=== PATIENT | female | born 1940 | race Caucasian/White ===

== ENCOUNTER 2016-10-03 10:58 | Emergency (ER) | payer MEDICARE ==
[~2016-10-03 10:58] MED LIST: Sodium Chloride 0.9% 100 ML BAG ONE
[2016-10-03 11:49] LABS: #Basophils 0.1 thou/uL (0.0-0.2); #Eosinphils 0.1 thou/uL (0.0-0.7); #Lymphocytes 0.9 thou/uL (1.20-3.40); #Monocytes 0.6 thou/uL (0.11-0.59); %Basophils 1.1 % (0.0-1.0); %Eosinophils 1.3 % (0.0-10.0); %Lymphocytes 8.8 % (21.0-51.0); %Neutrophils 82.8 % (42.0-75.0); INR-International Normal Ratio 0.9; Mean Corpuscular HGB CONC 35.1 g/dL (32.0-36.0); Mean Corpuscular Hemoglobin 31.1 pg (27.0-31.0); Mean Corpuscular Volume 88.6 fl (81.0-99.0); Mean Platelet Volume 7.6 fL (7.4-10.4); Platelet Count 266 thou/uL (130-400); Prothrombin Time 12.5 SEC (12.0-14.7); RBC Distribution Width 12.5 % (11.5-14.5); White Blood Cell (WBC) Count 9.6 thou/uL (4.8-10.8)
[2016-10-03] MEDS ORDERED: cefTRIAXone\\ROCEPHIN 1 GM VIAL ONE (11:49)
[2016-10-03] MEDS ORDERED: Benzonatate 100 MG CAP ONE (11:49)
[2016-10-03] MEDS ORDERED: Ketorolac Tromethamine 30 MG/ML VIAL ONE (11:49)
[2016-10-03] MEDS ORDERED: Dexamethasone 10 MG/ML VIAL ONE (11:49)
[2016-10-03] MEDS ORDERED: methylPREDNISolone Sod Succ/PF 125 MG/2 ML VIAL ONE (11:49)
[2016-10-03] MEDS ORDERED: Ondansetron HCl/PF 4 MG/2 ML Vial ONE (11:49)
--- NOTE | 2016-10-03 11:52 | RAD ---
PORTABLE CHEST ONE VIEW 10/03/2016 at 11:31 a.m.: HISTORY: Dyspnea. FINDINGS: Comparison is made with exam of 08/20/2015. The aorta is tortuous. The lungs are expanded with stable chronic changes. No confluent areas of c onsolidation, pneumothoraces, or pleural effusions are identified. IMPRESSION: Stable exam. No acute process. POS: [facility]
[2016-10-03 11:56] LABS: ALT (SGPT) 10 U/L (0-55); AST (SGOT) 14 U/L (5-34); Albumin 4.5 g/dL (3.4-4.8); Alkaline Phosphatase 86 U/L (40-150); Anion Gap 15 mmol/L (10-20); BUN (Urea Nitrogen) 11 mg/dL (9.8-20.1); Bilirubin, Total 0.5 mg/dL (0.2-1.2); Calc. Creatinine Clearance 0 mL/min (70-130); Calcium 9.5 mg/dL (7.8-10.44); Carbon Dioxide 27 mmol/L (23-31); Chloride 105 mmol/L (98-107); Estimated GFR-MDRD 80; Glucose 96 mg/dL (83-110); Potassium 3.7 mmol/L (3.5-5.1); Protein, Total 7.5 g/dL (5.8-8.1); Sodium 143 mmol/L (136-145)
[2016-10-03 12:29] LABS: Bilirubin Negative (Negative); Blood, Urine Trace (Negative); Clarity Slightly Cloudy (Clear); Glucose, Urine (Dipstick) Negative (Negative); Leukocyte Negative (Negative); Nitrite Negative (Negative); Protein, Urine (Dipstick) Negative (Neg-Trace); Urobilinogen 0.2 mg/dL (0.2-1.0); pH, Urine 7.5 (5.0-9.0)
[2016-10-03 12:34] LABS: Bacteria/HPF Rare-Few HPF (None Seen); Crystals/HPF 1+ AMORPH PHOS HPF (Negative); RBC/HPF 0-3 HPF (0-3); Squamous Epithelial 0-3 HPF (0-3); WBC/HPF None Seen HPF (0-3)
== END 2016-10-03 14:23 | disposition home or self-care (01) ==
LOC: MADERS 10:58
DX: J20.9 Acute bronchitis, unspecified (principal); J44.9 Chronic obstructive pulmonary disease, unspecified; Z87.891 Personal history of nicotine dependence
CPT/HCPCS: 71010; 80053; 81003; 81015; 83880; 85025; 85610; 85730; 87086; 87430; 93005; 94640; 94760; 96365; 96375; J0696; J1100; J1885; J2405; J2930; J7050; J7620

== ENCOUNTER 2017-04-16 05:18 | Inpatient (IN) | payer MEDICARE ==
[2017-04-16] MEDS ORDERED: Ibuprofen 200 MG TAB ONE (05:41)
[2017-04-16 06:08] LABS: #Basophils 0.1 thou/uL (0.0-0.2); #Lymphocytes 0.4 thou/uL (1.20-3.40); #Monocytes 0.6 thou/uL (0.11-0.59); #Neutrophils 8.9 thou/uL (1.40-6.50); %Basophils 1.2 % (0.0-1.0); %Lymphocytes 3.8 % (21.0-51.0); %Neutrophils 88.9 % (42.0-75.0); Hemoglobin 13.1 g/dL (12.0-16.0); Mean Corpuscular HGB CONC 32.4 g/dL (32.0-36.0); Mean Corpuscular Hemoglobin 29.4 pg (27.0-31.0); Mean Corpuscular Volume 90.9 fl (81.0-99.0); Mean Platelet Volume 7.5 fL (7.4-10.4); Platelet Count 241 thou/uL (130-400); RBC Distribution Width 13.2 % (11.5-14.5); Red Blood Cell (RBC) Count 4.45 mill/uL (4.20-5.40)
[2017-04-16 06:27] LABS: ALT (SGPT) 15 U/L (8-55); AST (SGOT) 16 U/L (5-34); Albumin 4.3 g/dL (3.4-4.8); Alkaline Phosphatase 81 U/L (40-150); Anion Gap 16 mmol/L (10-20); BUN (Urea Nitrogen) 10 mg/dL (9.8-20.1); Bilirubin, Total 0.5 mg/dL (0.2-1.2); Calc. Creatinine Clearance 0 mL/min (70-130); Calcium 9.4 mg/dL (7.8-10.44); Carbon Dioxide 25 mmol/L (23-31); Chloride 104 mmol/L (98-107); Estimated GFR-MDRD 72; Globulin 3.3 g/dL (2.4-3.5); Glucose 150 mg/dL (83-110); Potassium 3.5 mmol/L (3.5-5.1); Protein, Total 7.6 g/dL (6.0-8.3); Sodium 141 mmol/L (136-145)
[2017-04-16 06:34] LABS: CKMB 0.6 ng/mL (0-6.6); Troponin I Less than 0.010 ng/mL (< 0.028)
[2017-04-16 06:56] LABS: Bilirubin Negative (Negative); Clarity Clear (Clear); Glucose, Urine (Dipstick) Negative (Negative); Leukocyte Negative (Negative); Nitrite Negative (Negative); Protein, Urine (Dipstick) Negative (Neg-Trace); Specific Gravity, Urine 1.015 (1.005-1.030); Urobilinogen 0.2 mg/dL (0.2-1.0)
[2017-04-16 06:57] LABS: Bacteria/HPF None Seen HPF (None Seen); Blood, Urine Small (Negative); Squamous Epithelial 0-3 HPF (0-3); WBC/HPF 0-3 HPF (0-3)
[2017-04-16] MEDS ORDERED: Dexamethasone 10 MG/ML VIAL ONE (07:10)
[2017-04-16] MEDS ORDERED: cefTRIAXone\\ROCEPHIN 1 GM VIAL ONE (07:11)
[2017-04-16] MEDS ORDERED: methylPREDNISolone Sod Succ/PF 125 MG/2 ML VIAL ONE (07:11)
[2017-04-16] MEDS ORDERED: Sodium Chloride 0.9% 1,000 ML BAG ONE (08:20)
[2017-04-16] MEDS ORDERED: Sodium Chloride 0.9% 100 ML BAG ONE (08:20)
--- NOTE | 2017-04-16 08:45 | RAD ---
TWO VIEW CHEST: HISTORY: Fever. COMPARISON: 10/03/16 portable exam. FINDINGS: Lungs remain clear. No infiltrate or edema seen. Heart size within normal range. Mild aortic calc ification. Degenerative changes of both shoulders. Some chronic parenchymal changes in both lungs appear stable. IMPRESSION: No acute interval change. POS: [facility]
[2017-04-16] MEDS ORDERED: Enoxaparin Sodium 30 MG/0.3 ML SYRINGE ONE (09:10)
[2017-04-16] MEDS ORDERED: Azithromycin 250 MG TAB ONE (09:10)
[2017-04-16] MEDS ORDERED: Ondansetron HCl/PF 4 MG/2 ML Vial SLOW IVP PRN (10:15)
[2017-04-16] MEDS ORDERED: Loperamide HCl 2 MG CAP PO PRN (10:15)
[2017-04-16] MEDS ORDERED: Guaifenesin DM 100-10/5 ML UDCUP PO PRN (10:15)
[2017-04-16] MEDS ORDERED: HYDROcodone/Acetaminophen 5/325 mg Tablet PO PRN ×2 (10:15)
[2017-04-16] MEDS ORDERED: Zolpidem Tartrate 5 MG TAB PO PRN (10:15)
[2017-04-16] MEDS ORDERED: Bisacodyl 5 MG TAB PO PRN (10:15)
[2017-04-16] MEDS: Sodium Chloride 0.9% 1,000 ML IV SCH ×2 (11:05→20:46)
[2017-04-16] MEDS ORDERED: cefTRIAXone\\ROCEPHIN 1 GM in Sodium Chloride 0.9% 100 ML IVPB SCH (20:00)
--- NOTE | 2017-04-16 22:31 | HP ---
ADMITTING PHYSICIAN: Madina Barragan M.D. PRIMARY CARE PHYSICIAN: Rosita Bhatti M.D. REASON FOR ADMISSION: Shortness of breath. HISTORY OF PRESENT ILLNESS: Ms. Doyle is a 76-year-old female with significant history of COPD and chronic hypoxia, oxygen dependent. The patient reports she has been coughing at home. This is associated with shortness of breath and wheezing over the past 48-72 hours. Today, she develops fever at 102.6 upon initial evaluation in the ER. Denies any history of recent travel or ill exposure. Patient reports progressive wheezing and shortness of breath, thus she went to the ER for further evaluation. Patient reports no significant chest pain, pain with bleeding or bloody sputum. Patient was reported to have significant wheezing and tachycardia on presentation at the ER per report. Her initial vital signs in the ER showed blood pressure of 160/77, pulse 122, respirations 19, temperature 102.6, O2 saturation is 92% at 2 liters per nasal cannula. On further observation, the patient's O2 sats went up to 98-99 at 2 liters oxygen continuous per nasal cannula. Initial labs showed no significant leukocytosis with stable electrolytes. EKG showed sinus tachycardia, biatrial enlargement, otherwise, no acute evidence of ischemia. Cardiac enzymes are within normal limits. Chest x-ray showed no infiltrates or edema seen. Lungs remain clear. Heart size within normal range with some chronic parenchymal changes in both lungs, appears stable with no acute interval change. The patient was admitted for COPD exacerbation. Treatment received from the ER includes Decadron 10 mg, Solu -Medrol 125 mg IV, and DuoNeb breathing treatments. Empiric IV antibiotic with Rocephin was started from the ER and she was also started on Zithromax orally. Patient's heart rate went down to 109 prior to admission. Her O2 sats remain at 99 at 2 liters per nasal cannula before transfer to Med/Surg. When seen in the floor, patient was resting comfortably in bed. Family was at bedside, consisting of his son,daughter, sister and daughter in law. She reports she is feeling a little better, breathing much better. No new issues reported. PAST MEDICAL HISTORY: 1. COPD 2. Chronic hypoxia, O2 dependent. 3. Osteoarthritis. 4. History of hypertension, currently not on antihypertensives. 5. History of shingles on her face, bridge of nose, 2010. PAST SURGICAL HISTORY: 1. History of lithotripsy for kidney stones. 2. Hysterectomy in 1972 SOCIAL HISTORY: The patient was a former tobacco user, smoked cigarettes 1 pack a day for 50 years, quit 15 years ago. The patient denies alcohol use. Denies drug use. Lives at home with family. FAMILY HISTORY: Noncontributory to this case. CURRENT MEDICATIONS: 1. DuoNeb inhaled q.6 hours scheduled. 2. Advair 250/50 one puff b.i.d. REVIEW OF SYSTEMS: General: Reports fever, chills, general weakness, fatigue. HEENT: No acute visual changes or hearing changes. Respiratory: As per HPI. Cardiac: No chest pain/chest tightness, dyspnea on exertion, paroxysmal nocturnal dyspnea and palpitations. Genitourinary: No dysuria, hematuria, frequency, urgency or gross hematuria. Gastrointestinal: No nausea, vomiting, abdominal pain, diarrhea or constipation. No rectal bleeding. Musculoskeletal : Reports intermittent joint pains. No significant joint effusions or redness. Skin: No rashes, no lesions, no jaundice. Neurologic: No focal paralysis. No paraesthesia. VITAL SIGNS: BP 135/63 WA: 108 Temperature 97.5 RR: 18 02 sats: 97% Weight 114.4lbs PHYSICAL EXAMINATION: GENERAL: patient is awake,alert, oriented x 3, not in acute distress. HEENT: normo cephalic, atraumatic. NAVEEN, intact EOM, nonicteric sclerae. NECK: supple, no LAD, no JVD, no bruit. CHEST: mild tachypneic, nonlabored breathing. CARDIAC: mildly tachycardic, normal S1 and S2, no murmurs. ABDOMEN: soft ,NABS, nontender, no rebound, no guarding. Negative CVA tenderness. EXTREMITIES: thin, with clubbing, no cyanosis, no edema. NEURO: nonfocal, DTR's 2 ++, gait-normal. SKIN: dry, warm, no rashes, no lesions. LABORATORY AND X-RAY FINDINGS: WBC 10, hemoglobin 13.1, hematocrit 40.4, platelets 241,000. Sodium 141, potassium 3.5, carbon dioxide 25, BUN 10, creatinine 0.78, estimated GFR 72, glucose 150, lactic acid 1.5, calcium 9.4. Liver function tests within normal limits. CK 0.6, troponin less than 0.010. Albumin 4.3. Urine, yellow with small blood, urine rbc 7-10, urine wbc 0-3. Urine bacteria none seen. ASSESSMENT: 1. Chronic obstructive pulmonary disease on acute exacerbation. 2. Acute and chronic hypoxia, O2 dependent. 3. Microscopic hematuria with history of urolithiasis, status post stent, asymptomatic. 4. History of insomnia. PLAN: The patient is admitted to Med/Surg for inpatient COPD management. We will continue bronchodilator, IV steroids, and empiric antibiotic therapy as above. Serial blood works and chest x-rays. Patient reports history of urolithiasis, but she is currently asymptomatic. Her admitting urinalysis showed mild microscopic hematuria. We will repeat UA in the morning. If persistent, we will consider further stone protocol. We will continue IV hydration until patient is fully stabilized. Gastrointestinal prophylaxis with PPI. DVT prophylaxis with Lovenox. Further recommendations depending on the hospital course. CODE STATUS: Patient reports DO NOT RESUSCITATE, DO NOT INTUBATE in the presence of her son, Sergo Doyle. Mr. Doyle concurs the patient's wishes. DISPOSITION: Home once appropriate. Estimated length of stay 2-3 days. MTDD
[2017-04-17 05:56] LABS: Anion Gap 12 mmol/L (10-20)
[2017-04-17 06:10] LABS: Hemoglobin 12.1 g/dL (12.0-16.0); Mean Corpuscular HGB CONC 33.1 g/dL (32.0-36.0); Mean Corpuscular Hemoglobin 29.6 pg (27.0-31.0); Mean Corpuscular Volume 89.6 fl (81.0-99.0); Mean Platelet Volume 7.6 fL (7.4-10.4); Platelet Count 224 thou/uL (130-400); RBC Distribution Width 12.9 % (11.5-14.5); White Blood Cell (WBC) Count 9.4 thou/uL (4.8-10.8)
[2017-04-17 06:11] LABS: ALT (SGPT) 15 U/L (8-55); AST (SGOT) 14 U/L (5-34); Albumin 3.9 g/dL (3.4-4.8); Alkaline Phosphatase 68 U/L (40-150); BUN (Urea Nitrogen) 7 mg/dL (9.8-20.1); Bilirubin, Total Less than 0.3 mg/dL (0.2-1.2); Calc. Creatinine Clearance 59 mL/min (70-130); Calcium 9.1 mg/dL (7.8-10.44); Carbon Dioxide 24 mmol/L (23-31); Chloride 111 mmol/L (98-107); Estimated GFR-MDRD 88; Glucose 173 mg/dL (83-110); Potassium 3.1 mmol/L (3.5-5.1); Protein, Total 6.9 g/dL (6.0-8.3); Sodium 144 mmol/L (136-145)
[2017-04-17] MEDS: cefTRIAXone\\ROCEPHIN 1 GM in Sodium Chloride 0.9% 100 ML IVPB SCH (06:17)
[2017-04-17 06:18] LABS: Anisocytosis MODERATE=16-30 cells (100X) (0-5/hpf); Band 2 % (5-11); Hypochromia MODERATE=16-30 cells (100X) (0-5/hpf); Lymphocytes 5 % (21-51); MDiff Complete? YES; Monocytes 3 % (0-10); Neutrophil 90 % (42-75); PLT Morphology Comment Appears Adequate; Poikilocytosis MODERATE=16-30 cells (100X) (0-5/hpf)
[2017-04-17] MEDS: Sodium Chloride 0.9% 1,000 ML IV SCH ×2 (06:18→06:20)
[2017-04-17] MEDS: Enoxaparin Sodium 30 MG/0.3 ML SYRINGE SC SCH (06:20)
[2017-04-17 07:22] LABS: Anion Gap 15 mmol/L (10-20); BUN (Urea Nitrogen) 7 mg/dL (9.8-20.1); Calc. Creatinine Clearance 58 mL/min (70-130); Calcium 9.2 mg/dL (7.8-10.44); Carbon Dioxide 22 mmol/L (23-31); Chloride 111 mmol/L (98-107); Estimated GFR-MDRD 87; Glucose 161 mg/dL (83-110); Sodium 145 mmol/L (136-145)
[2017-04-17 07:24] LABS: Bacteria/HPF None Seen HPF (None Seen); RBC/HPF 0-3 HPF (0-3); Squamous Epithelial 0-3 HPF (0-3); WBC/HPF 0-3 HPF (0-3)
[2017-04-17] MEDS: Azithromycin 250 MG TAB PO SCH (08:52)
[2017-04-17] MEDS ORDERED: Pantoprazole 40 MG VIAL IVP SCH (09:00)
--- NOTE | 2017-04-17 09:59 | RAD ---
TWO VIEW CHEST: HISTORY: COPD. COMPARISON: 04/16/17. FINDINGS: Lungs show mild hyperexpansion. No focal infiltrate. No vascular congestion. Heart size within no rmal range. Aortic calcification is again noted. IMPRESSION: No acute finding or interval change. POS: [facility]
[2017-04-17] MEDS ORDERED: Potassium Chloride 20 MEQ TAB PO SCH (15:00)
[2017-04-17] MEDS ORDERED: methylPREDNISolone 4 mg Tablet PO SCH (15:00)
[2017-04-17] MEDS: 1/2 NS w/KCL 20 mEq 1,000 ML IV SCH (15:38)
[2017-04-17] MEDS: methylPREDNISolone 4 mg Tablet PO SCH ×3 (15:39→21:04)
[2017-04-17] MEDS: Budesonide 0.5 MG/2 ML NEB INH SCH (19:39)
[2017-04-17] MEDS: Benzonatate 100 MG CAP PO SCH (21:04)
[2017-04-18] MEDS: Budesonide 0.5 MG/2 ML NEB INH SCH ×2 (06:03→17:44)
[2017-04-18] MEDS: cefTRIAXone\\ROCEPHIN 1 GM in Sodium Chloride 0.9% 100 ML IVPB SCH (06:05)
[2017-04-18] MEDS: Enoxaparin Sodium 30 MG/0.3 ML SYRINGE SC SCH (06:10)
[2017-04-18] MEDS: Benzonatate 100 MG CAP PO SCH ×3 (08:37→21:07)
[2017-04-18] MEDS: Azithromycin 250 MG TAB PO SCH (08:37)
[2017-04-18] MEDS: Potassium Chloride 20 MEQ TAB PO SCH (08:37)
[2017-04-18] MEDS: methylPREDNISolone 4 mg Tablet PO SCH ×3 (08:37→17:41)
[2017-04-18 10:38] VITALS: BMI 19.2
[2017-04-18 10:49] LABS: Anion Gap 16 mmol/L (10-20); BUN (Urea Nitrogen) 12 mg/dL (9.8-20.1); Calc. Creatinine Clearance 54 mL/min (70-130); Calcium 9.6 mg/dL (7.8-10.44); Carbon Dioxide 23 mmol/L (23-31); Chloride 109 mmol/L (98-107); Estimated GFR-MDRD 79; Glucose 163 mg/dL (83-110); Potassium 3.5 mmol/L (3.5-5.1); Sodium 144 mmol/L (136-145)
[2017-04-18 11:06] LABS: Hemoglobin A1c 5.4 % (4.0-6.0)
[2017-04-18] MEDS: 1/2 NS w/KCL 20 mEq 1,000 ML IV SCH (11:48)
[2017-04-18] MEDS ORDERED: Sodium Chloride 0.9% 1,000 ML BAG ONE (13:44)
[2017-04-18] MEDS ORDERED: clonazePAM 0.5 MG TAB PO PRN (16:37)
[2017-04-18] MEDS ORDERED: methylPREDNISolone 4 mg Tablet PO SCH (21:00)
[2017-04-19] MEDS: Budesonide 0.5 MG/2 ML NEB INH SCH ×2 (06:19→17:59)
[2017-04-19] MEDS: cefTRIAXone\\ROCEPHIN 1 GM in Sodium Chloride 0.9% 100 ML IVPB SCH (06:22)
[2017-04-19] MEDS: Enoxaparin Sodium 30 MG/0.3 ML SYRINGE SC SCH (06:29)
[2017-04-19] MEDS: 1/2 NS w/KCL 20 mEq 1,000 ML IV SCH (07:15)
[2017-04-19] MEDS: methylPREDNISolone 4 mg Tablet PO SCH ×4 (08:28→20:28)
[2017-04-19] MEDS: Benzonatate 100 MG CAP PO SCH ×3 (08:28→20:29)
[2017-04-19] MEDS: Potassium Chloride 20 MEQ TAB PO SCH (08:28)
[2017-04-19] MEDS: Azithromycin 250 MG TAB PO SCH (08:28)
[2017-04-20] MEDS: Enoxaparin Sodium 30 MG/0.3 ML SYRINGE SC SCH (06:09)
[2017-04-20] MEDS: cefTRIAXone\\ROCEPHIN 1 GM in Sodium Chloride 0.9% 100 ML IVPB SCH (06:09)
[2017-04-20] MEDS: Budesonide 0.5 MG/2 ML NEB INH SCH (06:10)
[2017-04-20] MEDS: Potassium Chloride 20 MEQ TAB PO SCH (07:41)
[2017-04-20] MEDS: methylPREDNISolone 4 mg Tablet PO SCH ×2 (07:41→11:03)
[2017-04-20] MEDS: Azithromycin 250 MG TAB PO SCH (08:56)
[2017-04-20] MEDS: Benzonatate 100 MG CAP PO SCH (08:56)
[2017-04-20] MEDS ORDERED: 1/2 NS ONE (10:18)
[2017-04-20] MEDS ORDERED: Sterile Water Irrigation 250 ML BOT ONE (10:18)
[2017-04-20] MEDS ORDERED: Sodium Chloride 0.9% 1,000 ML BAG ONE (10:18)
[2017-04-20] MEDS ORDERED: KCL ONE (10:18)
[2017-04-20 12:15] VITALS: BP 143/64; TEMP 98.4
--- NOTE | 2017-04-21 06:32 | DIS ---
DATE OF ADMISSION: 04/16/2017 DATE OF DISCHARGE: 04/20/2017 DISCHARGE MEDICATIONS: Tessalon Perles 100 t.i.d. x10 days, Medrol pack, Klonopin 0.5 mg b.i.d. p.r.n. anxiety, sertraline 25 mg daily, Advair 250/50 one puff b.i.d., DuoNeb q.6 hourly p.r.n. DISCHARGE INSTRUCTIONS: Follow up with primary care physician in 2 weeks. Fall precautions, oxygen use at all times. BRIEF HOSPITAL COURSE: Ms. Doyle is a 76-year-old female, who is a patient of mine who presented to the emergency room on the 04/16/2017 due to coughing at home and worsening shortness of breath. The patient does have a history of severe COPD and she is oxygen dependent. She complained of fevers. She had a temperature of 102.6 in the emergency room. She complained of weakness and O2 sat was in the low 90s on 2 liters. Chest x-ray showed no infiltrates or edema, but patient was in visible respiratory distress, so she was admitted for COPD exacerbation. The patient was treated with IV Rocephin and completed 5 day course of IV antibiotics and oral azithromycin. During hospitalization, the patient had episodes of hypokalemia. Potassium was replaced without any complications. The patient was also noted to have hyperglycemic episodes. She was giving insulin, but A1c was done which was 5.4 and the patient was noted to not be diabetic. She initially started on Solu- Medrol 125 IV and that was later tapered to oral steroids based on improvement. During hospitalization, the patient complained of depression with anxiety states she has been taking her granddaughter's sertraline, and medication was added for her. She was started on sertraline 25, and Klonopin 0.5 b.i.d. as needed for anxiety. Patient was afebrile throughout hospitalization and her mental status was baseline. She improved significantly and was discharged home with the home oxygen in a stable condition. The patient was told to follow up closely with her primary care physician Vital signs upon discharge, temperature 98.4, pulse 100, respirations 20, O2 of 96% on 2 liters nasal cannula, blood pressure 143/64. Total time spent in preparation of this discharge summary and evaluation of patient, was a total of 35 minutes. [facility]
[2017-04-21] MEDS ORDERED: methylPREDNISolone 4 mg Tablet PO SCH (08:00)
[2017-04-22] MEDS ORDERED: methylPREDNISolone 4 mg Tablet PO SCH (08:00)
== END 2017-04-20 13:48 | disposition home or self-care (01) | DRG 192 ==
LOC: MADERS 05:18 → MADMS 08:44
PROVIDERS: ADMIT Family Medicine; ATTEND Family Medicine
DX: J44.1 Chronic obstructive pulmonary disease with (acute) exacerbation (principal); Z99.81 Dependence on supplemental oxygen; R31.21 Asymptomatic microscopic hematuria; E87.6 Hypokalemia; R73.9 Hyperglycemia, unspecified; F41.9 Anxiety disorder, unspecified; R09.02 Hypoxemia; M19.90 Unspecified osteoarthritis, unspecified site; Z87.891 Personal history of nicotine dependence; Z66 Do not resuscitate; F32.9 Major depressive disorder, single episode, unspecified
CPT/HCPCS: 36415; 71020; 80048; 80053; 81003; 81015; 82553; 83036; 83605; 84484; 85007; 85025; 85027; 87040; 87149; 93005; 94640; 96361; 96365; 96372; 96375; A4216; J0696; J1100; J1650; J2920; J2930; J7050; J7620; J7626

== ENCOUNTER 2017-10-20 08:28 | Emergency (ER) | payer MEDICARE ==
[2017-10-20] MEDS ORDERED: Ketorolac Tromethamine 30 MG/ML VIAL ONE (09:04)
--- NOTE | 2017-10-20 09:39 | RAD ---
LEFT HIP TWO VIEWS: HISTORY: Trauma. COMPARISON: None. FINDINGS: There is a nondisplaced intertrochanteric fracture of the left femur. The obturator ring is intact. IMPRESSION: Nondisplaced intertrochanteric fracture, left femur. POS: [facility]
--- NOTE | 2017-10-20 09:40 | RAD ---
AP PELVIS RADIOGRAPH: 10/20/2017 HISTORY: The patient fell today. Unable to straighten left leg. FINDINGS: There is a nondisplaced intertrochanteric left hip fracture. No distal fracture is seen. There is m ild bilateral hip osteoarthritis. Degenerative changes are seen in the lower lumbar spine. IMPRESSION: Nondisplaced intertrochanteric left hip fracture. POS: [facility]
[2017-10-20 10:40] LABS: #Basophils 0.1 thou/uL (0.0-0.2); #Eosinphils 0.1 thou/uL (0.0-0.7); #Lymphocytes 0.9 thou/uL (1.20-3.40); #Monocytes 0.6 thou/uL (0.11-0.59); %Eosinophils 0.5 % (0.0-10.0); %Lymphocytes 7.3 % (21.0-51.0); %Monocytes 4.9 % (0.0-10.0); %Neutrophils 86.3 % (42.0-75.0); Hemoglobin 12.6 g/dL (12.0-16.0); Mean Corpuscular HGB CONC 32.3 g/dL (32.0-36.0); Mean Corpuscular Hemoglobin 29.5 pg (27.0-31.0); Mean Corpuscular Volume 91.2 fl (81.0-99.0); Mean Platelet Volume 7.3 fL (7.4-10.4); Platelet Count 260 thou/uL (130-400); RBC Distribution Width 12.7 % (11.5-14.5); Red Blood Cell (RBC) Count 4.27 mill/uL (4.20-5.40); White Blood Cell (WBC) Count 12.8 thou/uL (4.8-10.8)
[2017-10-20] MEDS ORDERED: Fentanyl 100 MCG/2 ML VIAL ONE (10:51)
[2017-10-20 10:52] LABS: ALT (SGPT) 15 U/L (8-55); AST (SGOT) 14 U/L (5-34); Albumin 4.3 g/dL (3.4-4.8); Alkaline Phosphatase 85 U/L (40-150); Anion Gap 14 mmol/L (10-20); BUN (Urea Nitrogen) 11 mg/dL (9.8-20.1); Bilirubin, Total 0.4 mg/dL (0.2-1.2); Calc. Creatinine Clearance 0 mL/min (70-130); Calcium 9.2 mg/dL (7.8-10.44); Carbon Dioxide 25 mmol/L (23-31); Chloride 108 mmol/L (98-107); Estimated GFR-MDRD 77; Globulin 2.7 g/dL (2.4-3.5); Glucose 111 mg/dL (83-110); Potassium 4.2 mmol/L (3.5-5.1); Sodium 143 mmol/L (136-145)
[2017-10-20 10:54] LABS: Bilirubin Negative (Negative); Blood, Urine Negative (Negative); Clarity Clear (Clear); Glucose, Urine (Dipstick) Negative (Negative); Leukocyte Negative (Negative); Nitrite Negative (Negative); Protein, Urine (Dipstick) Negative (Neg-Trace); Specific Gravity, Urine 1.015 (1.005-1.030); Urobilinogen 0.2 mg/dL (0.2-1.0)
== END 2017-10-20 11:04 | disposition short-term general hospital (02) ==
LOC: MADERS 08:28
DX: S72.145A Nondisplaced intertrochanteric fracture of left femur, initial encounter for closed fracture (principal); S80.212A Abrasion, left knee, initial encounter; J44.9 Chronic obstructive pulmonary disease, unspecified; Z87.891 Personal history of nicotine dependence; Z79.899 Other long term (current) drug therapy; W10.9XXA Fall (on) (from) unspecified stairs and steps, initial encounter; Y92.009 Unspecified place in unspecified non-institutional (private) residence as the place of occurrence of the external cause
CPT/HCPCS: 72170; 80053; 81003; 85025; 96374; 96375; J1885; J3010

== ENCOUNTER 2017-10-23 21:09 | Inpatient (IN) | payer MEDICARE ==
[2017-10-23] MEDS ORDERED: Ondansetron ODT 4 MG TAB PO PRN (22:30)
[2017-10-23] MEDS ORDERED: Dextrose 50% Abboject 50 ML SYRINGE SLOW IVP PRN (22:35)
[2017-10-23] MEDS ORDERED: Fleet Enema 133 ML BOT PR PRN (22:35)
[2017-10-23] MEDS ORDERED: Milk Of Magnesia 30 ML UDCUP PO PRN (22:35)
[2017-10-23] MEDS ORDERED: traMADol HCl 50 MG TAB PO PRN ×3 (22:35→22:56)
[2017-10-24] MEDS: Senokot S 8.6-50 MG TAB PO SCH ×2 (08:27→20:22)
[2017-10-24] MEDS: Mometasone/Formoterol 60 PUFF AER INH SCH ×2 (08:27→19:26)
[2017-10-24] MEDS: Docusate 100 MG CAP PO SCH (08:28)
[2017-10-24] MEDS: Aspirin 325 MG TAB PO SCH ×2 (08:28→20:22)
[2017-10-24] MEDS: Multivitamin W/ Minerals 1 TAB PO SCH (08:28)
[2017-10-24] MEDS: Ferrous Gluconate 324 MG TAB PO SCH ×2 (08:28→17:07)
[2017-10-24] MEDS: Albuterol Sulfate 2.5 mg/3 ml Neb NEB PRN ×3 (08:35→21:45)
[2017-10-24] MEDS ORDERED: Docusate 100 MG CAP PO SCH (09:00)
[2017-10-24] MEDS ORDERED: Non-Formulary Item 1 EACH (Fluticasone/Salmeterol [Advair Diskus 250/50] 1 INH) IH SCH (09:00)
--- NOTE | 2017-10-24 15:14 | HP ---
DATE OF ADMISSION: 10/23/2017 ADMITTING AND PRIMARY CARE PHYSICIAN: Rosita Bhatti MD REASON FOR ADMISSION: Skilled rehabilitation at [facility] status post left intertrochanteric hip fracture status post intramedullary nail fixation on 10/20/2017. HISTORY OF PRESENT ILLNESS: Ms. Doyle is a 77-year-old female with a past medical history of COPD with oxygen dependent. She states she was in a normal state of health at home and she was ambulating on a doorway and slipped on a step, causing her to fall on her right hip. Patient immediately sustained pain on the left side of her hip and was transferred to the emergency room where she was noted with x-ray showed a nondisplaced intertrochanteric left hip fracture. The patient was transferred to [facility] in [place] and underwent intramedullary nail fixation on 10/20/2017. The patient tolerated the procedure well and on postop day #3, she was transferred for skilled rehabilitation at [facility] in [place]. When i saw patient today she denies any chest pain, cough or fevers. She complains she feels sick to her stomach, but denies any diarrhea or constipation. The patient has tolerated Tylenol for pain, but was given tramadol x1, which she links to the abdominal pain. She complains of mild tenderness to the left hip, but denies any falls. She is excited to start physical therapy in anticipation to go home in the next couple of weeks. PAST MEDICAL HISTORY: COPD, oxygen dependent, depression. PAST SURGICAL HISTORY: Hysterectomy in 1973, lithotripsy for kidney stones. SOCIAL HISTORY: Patient is a former tobacco smoker. She smoked 1 pack per day x50 years. She says she quit about 10-15 years ago. The patient denies any alcohol use. She denies any illicit drug use. She lives at home with her daughter. MEDICATIONS: Oxygen 2 liters via nasal cannula, albuterol nebulizer as needed, Advair inhaler b.i.d., sertraline 25 mg daily. ALLERGIES: No known drug allergies. CODE STATUS: FULL CODE. REVIEW OF SYSTEMS: Denies any fever, denies any fatigue. Complains of inability to walk straight. Denies chest pain, denies shortness of breath. Denies blurry vision, denies eye pain. Denies congestion, cough. Denies nausea or vomiting. Complains of mild abdominal discomfort. Denies any hallucinations or delusions. PHYSICAL EXAMINATION: VITAL SIGNS: Temperature 97.5, respirations 18, O2 sat on nasal cannula 2 liters 96%, blood pressure 132/64. GENERAL: Patient is alert, awake, oriented x3, very pleasant, sitting up in bed. HEENT: Normocephalic, atraumatic. RESPIRATIONS: Clear to auscultation bilaterally on 2 liters nasal cannula. CARDIOVASCULAR: S1, S2, no murmurs. No rubs. EXTREMITIES: No edema. Left hip with three different incisions with ekaterina intact, mildly tender. No surrounding erythema, no drainage. NEUROLOGIC: Alert, awake, oriented x3, no focal deficits. ASSESSMENT: 1. Physical debility. 2. Gait instability status post left hip fracture status post intramedullary nail fixation. 3. Chronic obstructive pulmonary disease, oxygen dependent. 4. Depression PLAN: The patient is to be admitted to [facility] bed. We will consult physical therapy to help with gait strengthening and we will consult occupational therapy to help with the teaching in activities of daily living. We will restart the patient's home medications. We will monitor the patient closely for any hemodynamic instability. We will place patient on sequential compression devices for deep venous thrombosis prophylaxis and Protonix for GI prophylaxis. EXPECTED LENGTH OF STAY: Two to three weeks. [facility]
[2017-10-24] MEDS: Acetaminophen 325 MG TAB PO PRN (17:27)
[2017-10-25] MEDS: Mometasone/Formoterol 60 PUFF AER INH SCH ×2 (07:23→18:37)
[2017-10-25] MEDS: Ferrous Gluconate 324 MG TAB PO SCH ×2 (08:01→16:58)
[2017-10-25] MEDS: Docusate 100 MG CAP PO SCH (09:19)
[2017-10-25] MEDS: Aspirin 325 MG TAB PO SCH ×2 (09:19→21:14)
[2017-10-25] MEDS: Multivitamin W/ Minerals 1 TAB PO SCH (09:19)
[2017-10-25] MEDS: Senokot S 8.6-50 MG TAB PO SCH ×2 (09:19→21:15)
[2017-10-25] MEDS: Albuterol Sulfate 2.5 mg/3 ml Neb NEB PRN (13:05)
[2017-10-25] MEDS: Albuterol Sulfate 2.5 mg/3 ml Neb NEB SCH (18:46)
[2017-10-25] MEDS: Zolpidem Tartrate 5 MG TAB PO PRN (18:59)
[2017-10-26] MEDS: Albuterol Sulfate 2.5 mg/3 ml Neb NEB PRN (02:17)
[2017-10-26] MEDS: Albuterol Sulfate 2.5 mg/3 ml Neb NEB SCH ×4 (08:50→19:20)
[2017-10-26] MEDS: Mometasone/Formoterol 60 PUFF AER INH SCH ×2 (08:50→19:21)
[2017-10-26] MEDS: Ferrous Gluconate 324 MG TAB PO SCH ×2 (08:51→17:11)
[2017-10-26] MEDS: Docusate 100 MG CAP PO SCH (08:51)
[2017-10-26] MEDS: Senokot S 8.6-50 MG TAB PO SCH ×2 (08:51→20:02)
[2017-10-26] MEDS: Multivitamin W/ Minerals 1 TAB PO SCH (08:51)
[2017-10-26] MEDS: Aspirin 325 MG TAB PO SCH ×2 (08:51→20:02)
[2017-10-26] MEDS ORDERED: acetaZOLAMIDE Sodium 500 mg Vial ONE (13:15)
[2017-10-26] MEDS: Zolpidem Tartrate 5 MG TAB PO PRN (20:01)
[2017-10-27] MEDS: Albuterol Sulfate 2.5 mg/3 ml Neb NEB PRN ×3 (02:20→23:35)
[2017-10-27] MEDS: Mometasone/Formoterol 60 PUFF AER INH SCH ×2 (06:05→17:52)
[2017-10-27] MEDS: Albuterol Sulfate 2.5 mg/3 ml Neb NEB SCH ×4 (06:05→17:53)
[2017-10-27] MEDS: Multivitamin W/ Minerals 1 TAB PO SCH (08:26)
[2017-10-27] MEDS: Aspirin 325 MG TAB PO SCH ×2 (08:26→20:01)
[2017-10-27] MEDS: Ferrous Gluconate 324 MG TAB PO SCH ×2 (08:26→17:17)
[2017-10-27] MEDS: Senokot S 8.6-50 MG TAB PO SCH ×2 (08:26→20:02)
[2017-10-27] MEDS: Docusate 100 MG CAP PO SCH (08:26)
[2017-10-27] MEDS: Acetaminophen 325 MG TAB PO PRN (20:01)
[2017-10-27] MEDS: Zolpidem Tartrate 5 MG TAB PO PRN (20:01)
[2017-10-28] MEDS: Albuterol Sulfate 2.5 mg/3 ml Neb NEB PRN ×2 (04:34→22:32)
[2017-10-28] MEDS: Albuterol Sulfate 2.5 mg/3 ml Neb NEB SCH ×4 (08:58→17:22)
[2017-10-28] MEDS: Mometasone/Formoterol 60 PUFF AER INH SCH ×2 (09:03→17:23)
[2017-10-28] MEDS: Ferrous Gluconate 324 MG TAB PO SCH ×2 (09:04→15:14)
[2017-10-28] MEDS: Multivitamin W/ Minerals 1 TAB PO SCH (09:05)
[2017-10-28] MEDS: Aspirin 325 MG TAB PO SCH ×2 (09:05→21:10)
[2017-10-28] MEDS: Senokot S 8.6-50 MG TAB PO SCH ×2 (09:05→21:12)
[2017-10-28] MEDS: Docusate 100 MG CAP PO SCH ×2 (09:05→09:07)
[2017-10-28] MEDS ORDERED: Azithromycin 250 MG TAB PO SCH (14:00)
[2017-10-28] MEDS: Cepastat Lozenges 1 LOZ PO PRN (21:10)
[2017-10-28] MEDS: Zolpidem Tartrate 5 MG TAB PO PRN (21:10)
[2017-10-29] MEDS: Albuterol Sulfate 2.5 mg/3 ml Neb NEB PRN (02:48)
[2017-10-29] MEDS: Cepastat Lozenges 1 LOZ PO PRN (03:33)
[2017-10-29] MEDS: Mometasone/Formoterol 60 PUFF AER INH SCH ×2 (06:32→18:05)
[2017-10-29] MEDS: Albuterol Sulfate 2.5 mg/3 ml Neb NEB SCH ×4 (06:32→18:05)
[2017-10-29] MEDS: Acetaminophen 325 MG TAB PO PRN ×2 (06:44→19:24)
[2017-10-29] MEDS: Multivitamin W/ Minerals 1 TAB PO SCH (09:23)
[2017-10-29] MEDS: Ferrous Gluconate 324 MG TAB PO SCH ×2 (09:23→16:46)
[2017-10-29] MEDS: Senokot S 8.6-50 MG TAB PO SCH ×2 (09:23→20:30)
[2017-10-29] MEDS: Aspirin 325 MG TAB PO SCH ×2 (09:23→20:30)
[2017-10-29] MEDS: Docusate 100 MG CAP PO SCH (09:24)
[2017-10-29] MEDS: Azithromycin 250 MG TAB PO SCH (09:24)
[2017-10-29] MEDS: Guaifenesin DM 100-10/5 ML UDCUP PO PRN (16:27)
[2017-10-29] MEDS: Zolpidem Tartrate 5 MG TAB PO PRN (20:30)
[2017-10-30] MEDS: Mometasone/Formoterol 60 PUFF AER INH SCH ×2 (06:56→18:00)
[2017-10-30] MEDS: Albuterol Sulfate 2.5 mg/3 ml Neb NEB SCH ×4 (06:57→18:00)
[2017-10-30] MEDS: Aspirin 325 MG TAB PO SCH ×2 (08:04→20:48)
[2017-10-30] MEDS: Ferrous Gluconate 324 MG TAB PO SCH ×2 (08:04→17:01)
[2017-10-30] MEDS: Azithromycin 250 MG TAB PO SCH (08:04)
[2017-10-30] MEDS: Senokot S 8.6-50 MG TAB PO SCH ×2 (08:05→20:48)
[2017-10-30] MEDS: Multivitamin W/ Minerals 1 TAB PO SCH (08:05)
[2017-10-30] MEDS: Docusate 100 MG CAP PO SCH (08:05)
[2017-10-30 11:34] LABS: Bilirubin Negative (Negative); Blood, Urine Trace (Negative); Clarity Clear (Clear); Glucose, Urine (Dipstick) Negative (Negative); Leukocyte Negative (Negative); Nitrite Negative (Negative); Protein, Urine (Dipstick) Negative (Neg-Trace); Specific Gravity, Urine 1.015 (1.005-1.030); Urobilinogen 0.2 mg/dL (0.2-1.0)
[2017-10-30 11:35] LABS: Bacteria/HPF Rare-Few HPF (None Seen); RBC/HPF 0-3 HPF (0-3); Squamous Epithelial 0-3 HPF (0-3); WBC/HPF None Seen HPF (0-3)
[2017-10-30 11:59] LABS: ALT (SGPT) 21 U/L (8-55); AST (SGOT) 21 U/L (5-34); Albumin 3.8 g/dL (3.4-4.8); Alkaline Phosphatase 74 U/L (40-150); BUN (Urea Nitrogen) 14 mg/dL (9.8-20.1); Bilirubin, Total 0.5 mg/dL (0.2-1.2); Calc. Creatinine Clearance 61 mL/min (70-130); Calcium 9.4 mg/dL (7.8-10.44); Carbon Dioxide 28 mmol/L (23-31); Estimated GFR-MDRD 85; Globulin 2.7 g/dL (2.4-3.5); Glucose 107 mg/dL (83-110); Protein, Total 6.5 g/dL (6.0-8.3)
--- NOTE | 2017-10-30 12:16 | RAD ---
CHEST 2 VIEWS: Date: 10/30/17 HISTORY: Fever and cough. Worsening COPD. COMPARISON: Chest radiograph dated 04/17/17. FINDINGS: Lungs are hyperinflated. There is scarring in the lung apices. Cardiac silhouette and mediastinal contour within normal limits. No acute osseous abnormality. Chronic appearing lower thoracic spine vertebral body height loss, unchanged. IMPRESSION: No acute intrathoracic abnormality. POS: [facility]
[2017-10-30 12:18] LABS: Red Blood Cell (RBC) Count 3.19 mill/uL (4.20-5.40); White Blood Cell (WBC) Count 7.9 thou/uL (4.8-10.8)
[2017-10-30 12:19] LABS: Band 1 % (5-11); MDiff Complete? YES; Manual Diff?? YES; Mean Corpuscular HGB CONC 33.9 g/dL (32.0-36.0); Mean Corpuscular Hemoglobin 31.2 pg (27.0-31.0); Mean Corpuscular Volume 92.2 fL (81.0-99.0); Mean Platelet Volume 5.9 fL (7.4-10.4); Neutrophil 76 % (42-75); Platelet Count 349 thou/uL (130-400); RBC Distribution Width 14.1 % (11.5-14.5)
[2017-10-30 12:20] LABS: Eosinophils 1 % (0-10); Lymphocytes 8 % (21-51); Monocytes 7 % (0-10); PLT Morphology Comment Appears Adequate; Reactive Lymphocytes 7 % (0-10)
[2017-10-30 12:52] LABS: Sodium 143 mmol/L (136-145)
[2017-10-30 12:53] LABS: Potassium 4.5 mmol/L (3.5-5.1)
[2017-10-30 12:54] LABS: Chloride 105 mmol/L (98-107)
[2017-10-30 12:55] LABS: Anion Gap 15 mmol/L (10-20)
[2017-10-30] MEDS: Guaifenesin DM 100-10/5 ML UDCUP PO PRN (19:30)
[2017-10-30] MEDS: Acetaminophen 325 MG TAB PO PRN (19:30)
[2017-10-30] MEDS: Zolpidem Tartrate 5 MG TAB PO PRN (20:48)
[2017-10-31] MEDS: Albuterol Sulfate 2.5 mg/3 ml Neb NEB PRN (01:36)
[2017-10-31] MEDS: Albuterol Sulfate 2.5 mg/3 ml Neb NEB SCH ×4 (06:12→18:25)
[2017-10-31] MEDS: Mometasone/Formoterol 60 PUFF AER INH SCH ×2 (06:13→18:26)
[2017-10-31] MEDS: Guaifenesin DM 100-10/5 ML UDCUP PO PRN (06:23)
[2017-10-31] MEDS: Azithromycin 250 MG TAB PO SCH (09:21)
[2017-10-31] MEDS: Senokot S 8.6-50 MG TAB PO SCH ×2 (09:22→20:29)
[2017-10-31] MEDS: Multivitamin W/ Minerals 1 TAB PO SCH (09:22)
[2017-10-31] MEDS: Docusate 100 MG CAP PO SCH (09:22)
[2017-10-31] MEDS: Aspirin 325 MG TAB PO SCH ×2 (09:22→20:29)
[2017-10-31] MEDS: Ferrous Gluconate 324 MG TAB PO SCH ×2 (09:22→16:57)
[2017-10-31] MEDS: Acetaminophen 325 MG TAB PO PRN (20:30)
[2017-10-31] MEDS: Zolpidem Tartrate 5 MG TAB PO PRN (20:30)
[2017-11-01] MEDS: Albuterol Sulfate 2.5 mg/3 ml Neb NEB PRN ×2 (04:14→21:49)
[2017-11-01] MEDS: Albuterol Sulfate 2.5 mg/3 ml Neb NEB SCH ×4 (07:42→18:04)
[2017-11-01] MEDS: Mometasone/Formoterol 60 PUFF AER INH SCH ×2 (07:42→18:04)
[2017-11-01] MEDS: Ferrous Gluconate 324 MG TAB PO SCH ×2 (09:00→17:10)
[2017-11-01] MEDS: predniSONE 20 MG TAB PO SCH (09:00)
[2017-11-01] MEDS: Multivitamin W/ Minerals 1 TAB PO SCH (09:01)
[2017-11-01] MEDS: Senokot S 8.6-50 MG TAB PO SCH ×2 (09:01→20:30)
[2017-11-01] MEDS: Aspirin 325 MG TAB PO SCH ×2 (09:01→20:38)
[2017-11-01] MEDS: Azithromycin 250 MG TAB PO SCH (09:01)
[2017-11-01] MEDS: Docusate 100 MG CAP PO SCH (09:01)
[2017-11-01] MEDS ORDERED: cefTRIAXone\\ROCEPHIN 1 GM in Sodium Chloride 0.9% 100 ML IVPB SCH (10:30)
[2017-11-01] MEDS: methylPREDNISolone Sod Succ/PF 125 MG/2 ML VIAL IVP SCH (11:32)
[2017-11-01] MEDS ORDERED: cefTRIAXone\\ROCEPHIN 1 GM, Syringe 0.4 ML in Sterile Water 9.6 ML SLOW IVP SCH ×2 (12:00)
[2017-11-01] MEDS: Sterile Water 10 ML VIAL FS SCH (12:53)
[2017-11-01] MEDS: cefTRIAXone\\ROCEPHIN 1 GM VIAL SLOW IVP SCH (12:54)
[2017-11-01] MEDS: Zolpidem Tartrate 5 MG TAB PO PRN (20:39)
[2017-11-01] MEDS: Guaifenesin DM 100-10/5 ML UDCUP PO PRN (21:54)
[2017-11-02] MEDS: Albuterol Sulfate 2.5 mg/3 ml Neb NEB PRN (03:04)
[2017-11-02] MEDS: Senokot S 8.6-50 MG TAB PO SCH ×2 (08:58→20:55)
[2017-11-02] MEDS: Aspirin 325 MG TAB PO SCH ×2 (08:58→20:54)
[2017-11-02] MEDS: Ferrous Gluconate 324 MG TAB PO SCH ×2 (08:59→17:57)
[2017-11-02] MEDS: Multivitamin W/ Minerals 1 TAB PO SCH (08:59)
[2017-11-02] MEDS: predniSONE 20 MG TAB PO SCH (08:59)
[2017-11-02] MEDS: Docusate 100 MG CAP PO SCH (08:59)
[2017-11-02] MEDS: methylPREDNISolone Sod Succ/PF 125 MG/2 ML VIAL IVP SCH (09:00)
[2017-11-02] MEDS: Albuterol Sulfate 2.5 mg/3 ml Neb NEB SCH ×2 (09:00→11:53)
[2017-11-02] MEDS: Mometasone/Formoterol 60 PUFF AER INH SCH ×2 (09:01→17:58)
[2017-11-02] MEDS: Guaifenesin DM 100-10/5 ML UDCUP PO PRN (09:18)
[2017-11-02] MEDS: Sterile Water 10 ML VIAL FS SCH (11:53)
[2017-11-02] MEDS: cefTRIAXone\\ROCEPHIN 1 GM VIAL SLOW IVP SCH (11:53)
[2017-11-02] MEDS: Zolpidem Tartrate 5 MG TAB PO PRN (20:55)
[2017-11-03] MEDS: Guaifenesin DM 100-10/5 ML UDCUP PO PRN ×3 (02:07→20:43)
[2017-11-03] MEDS: Mometasone/Formoterol 60 PUFF AER INH SCH ×2 (07:11→17:59)
[2017-11-03] MEDS: Ferrous Gluconate 324 MG TAB PO SCH ×2 (07:53→16:39)
[2017-11-03] MEDS: Aspirin 325 MG TAB PO SCH ×2 (09:06→20:38)
[2017-11-03] MEDS: Multivitamin W/ Minerals 1 TAB PO SCH (09:08)
[2017-11-03] MEDS: predniSONE 20 MG TAB PO SCH (09:09)
[2017-11-03] MEDS: Senokot S 8.6-50 MG TAB PO SCH ×2 (09:13→20:38)
[2017-11-03] MEDS: Docusate 100 MG CAP PO SCH (09:13)
[2017-11-03] MEDS: cefTRIAXone\\ROCEPHIN 1 GM VIAL SLOW IVP SCH (12:10)
[2017-11-03] MEDS: Zolpidem Tartrate 5 MG TAB PO PRN (20:38)
[2017-11-04] MEDS: Mometasone/Formoterol 60 PUFF AER INH SCH ×2 (06:24→18:22)
[2017-11-04] MEDS: predniSONE 20 MG TAB PO SCH (09:40)
[2017-11-04] MEDS: Aspirin 325 MG TAB PO SCH ×2 (09:40→20:13)
[2017-11-04] MEDS: Ferrous Gluconate 324 MG TAB PO SCH ×2 (09:40→16:38)
[2017-11-04] MEDS: Senokot S 8.6-50 MG TAB PO SCH ×2 (09:40→20:09)
[2017-11-04] MEDS: Multivitamin W/ Minerals 1 TAB PO SCH (09:41)
[2017-11-04] MEDS: Docusate 100 MG CAP PO SCH (09:41)
[2017-11-04] MEDS: cefTRIAXone\\ROCEPHIN 1 GM VIAL SLOW IVP SCH (12:20)
[2017-11-04] MEDS: Zolpidem Tartrate 5 MG TAB PO PRN (20:13)
[2017-11-05] MEDS: Mometasone/Formoterol 60 PUFF AER INH SCH ×2 (06:02→17:23)
[2017-11-05] MEDS: Guaifenesin DM 100-10/5 ML UDCUP PO PRN (08:33)
[2017-11-05] MEDS: Aspirin 325 MG TAB PO SCH ×2 (08:34→20:04)
[2017-11-05] MEDS: predniSONE 20 MG TAB PO SCH (08:34)
[2017-11-05] MEDS: Multivitamin W/ Minerals 1 TAB PO SCH (08:34)
[2017-11-05] MEDS: Senokot S 8.6-50 MG TAB PO SCH ×2 (08:35→20:05)
[2017-11-05] MEDS: Docusate 100 MG CAP PO SCH (08:35)
[2017-11-05] MEDS: Ferrous Gluconate 324 MG TAB PO SCH ×2 (08:35→17:23)
[2017-11-05] MEDS: cefTRIAXone\\ROCEPHIN 1 GM VIAL SLOW IVP SCH (13:01)
[2017-11-05] MEDS: Zolpidem Tartrate 5 MG TAB PO PRN (20:12)
[2017-11-06] MEDS: Mometasone/Formoterol 60 PUFF AER INH SCH ×2 (06:10→17:31)
[2017-11-06] MEDS: Aspirin 325 MG TAB PO SCH ×2 (08:36→20:16)
[2017-11-06] MEDS: Ferrous Gluconate 324 MG TAB PO SCH ×2 (08:36→17:29)
[2017-11-06] MEDS: Docusate 100 MG CAP PO SCH (08:37)
[2017-11-06] MEDS: Multivitamin W/ Minerals 1 TAB PO SCH (08:38)
[2017-11-06] MEDS: Senokot S 8.6-50 MG TAB PO SCH ×2 (08:38→20:11)
[2017-11-06] MEDS: Sterile Water 10 ML VIAL FS SCH (12:05)
[2017-11-06] MEDS: cefTRIAXone\\ROCEPHIN 1 GM VIAL SLOW IVP SCH (12:05)
[2017-11-06] MEDS: Zolpidem Tartrate 5 MG TAB PO PRN (20:16)
[2017-11-06 22:41] VITALS: BMI 19.3
[2017-11-07] MEDS: Mometasone/Formoterol 60 PUFF AER INH SCH (06:09)
[2017-11-07 06:52] VITALS: BP 147/65; TEMP 97.8
[2017-11-07] MEDS: Senokot S 8.6-50 MG TAB PO SCH (09:04)
[2017-11-07] MEDS: Docusate 100 MG CAP PO SCH (09:04)
[2017-11-07] MEDS: Multivitamin W/ Minerals 1 TAB PO SCH (09:04)
[2017-11-07] MEDS: Ferrous Gluconate 324 MG TAB PO SCH (09:05)
[2017-11-07] MEDS: Aspirin 325 MG TAB PO SCH (09:05)
--- NOTE | 2017-11-07 16:16 | DIS ---
DATE OF ADMISSION: 10/23/2017 DATE OF DISCHARGE: 11/07/2017 DISCHARGING PHYSICIAN: Rosita Bhatti M.D. FINAL DIAGNOSES: 1. Status post left hip fracture, status post open reduction and internal fixation. 2. Acute chronic obstructive pulmonary disease exacerbation, resolved. 3. Primary Insomnia. 4. Depression with anxiety. 5. Gait instability. DISCHARGE MEDICATIONS: Sertraline 25 b.i.d., Ambien 5 mg at bedtime and Advair two puffs b.i.d. DISCHARGE INSTRUCTIONS: Follow up with PCP in 2 weeks. Follow up with orthopedic doctor, Dr. Gongora on 11/13. Outpatient physical therapy weekly. Smoking cessation. Fall precautions. Ambulate with walker at all times. BRIEF HOSPITAL COURSE: Ms. Doyle is a 77-year-old female who fell at home and sustained a left hip fracture. The patient underwent intramedullary nail fixation on 10/20/2017. She tolerated the procedure well and was transferred to [facility] in [place] for skilled rehabilitation prior to discharge to her home. The patient was able to participate in physical therapy and slowly improved with gait. During hospitalization, she had a flare up of her COPD. She had episodes of fever and shortness of breath. She had to be put on antibiotics. She completed 5-day course of Rocephin and a 5-day course of azithromycin. The patient's respiratory process improved and fever resolved. She continued with physical therapy and on day of discharge was able to walk 50 feet with a rolling walker. The patient requested to go home and she was discharged home in a stable condition with daughter. The patient states she would prefer to come to outpatient services in [place] for physical therapy rather than home health and she was set up with that. CODE STATUS: The patient is a FULL CODE. DISCHARGE VITAL SIGNS: Temperature 97.8, pulse 90, respirations 20, O2 saturation 94% on 2 liters nasal cannula and blood pressure 147/65. MTDD
== END 2017-11-07 12:15 | disposition home or self-care (01) | DRG 560 ==
LOC: MADMS 21:09
PROVIDERS: ADMIT Family Medicine; ATTEND Family Medicine
DX: S72.142D Displaced intertrochanteric fracture of left femur, subsequent encounter for closed fracture with routine healing (principal); J44.1 Chronic obstructive pulmonary disease with (acute) exacerbation; Z99.81 Dependence on supplemental oxygen; W10.9XXD Fall (on) (from) unspecified stairs and steps, subsequent encounter; Z87.891 Personal history of nicotine dependence; F51.01 Primary insomnia; F41.8 Other specified anxiety disorders; R26.81 Unsteadiness on feet
CPT/HCPCS: 36415; 71046; 80053; 81001; 85025; 87804; 94640; 94664; A4216; G8978-GP-CK; G8979-GP-CI; J0696; J1120; J2930; J7506; J7611; J7620

== ENCOUNTER 2018-02-28 21:31 | Emergency (ER) | payer MEDICARE ==
[~2018-02-28 21:31] MED LIST changes: -Sodium Chloride 0.9% 100 ML BAG ONE; +Sodium Chloride 0.9% 500 ML BAG ONE
[2018-02-28 22:22] LABS: #Basophils 0.1 thou/uL (0.0-0.2); #Eosinphils 0.4 thou/uL (0.0-0.7); #Lymphocytes 1.3 thou/uL (1.20-3.40); #Monocytes 0.6 thou/uL (0.11-0.59); #Neutrophils 4.4 thou/uL (1.40-6.50); %Basophils 1.3 % (0.0-1.0); %Eosinophils 6.4 % (0.0-10.0); %Lymphocytes 18.6 % (21.0-51.0); %Monocytes 9.5 % (0.0-10.0); %Neutrophils 64.3 % (42.0-75.0); Hemoglobin 12.6 g/dL (12.0-16.0); Mean Corpuscular Volume 84.4 fL (78.0-98.0); Mean Platelet Volume 6.6 fL (7.4-10.4); Platelet Count 309 thou/uL (130-400); RBC Distribution Width 12.8 % (11.5-14.5); Red Blood Cell (RBC) Count 4.68 mill/uL (4.20-5.40); White Blood Cell (WBC) Count 6.8 thou/uL (4.8-10.8)
--- NOTE | 2018-02-28 22:35 | RAD ---
TWO VIEWS OF THE CHEST: 02/28/18 COMPARISON: 10/30/17 HISTORY: Cough and shortness of breath. FINDINGS: Two views of the chest show normal sized cardiomediastinal silhouette with atherosclerotic calcificat ion sin the aorta. There is no evidence of consolidation, mass, or pleural effusion. Degenerative kisha nges are seen in the spine. IMPRESSION: No evidence of acute cardiopulmonary disease. POS: [facility]
[2018-02-28 22:39] LABS: ALT (SGPT) 9 U/L (8-55); AST (SGOT) 11 U/L (5-34); Albumin 4.4 g/dL (3.4-4.8); Alkaline Phosphatase 74 U/L (40-150); Anion Gap 18 mmol/L (10-20); BUN (Urea Nitrogen) 8 mg/dL (9.8-20.1); Bilirubin, Total 0.3 mg/dL (0.2-1.2); Calc. Creatinine Clearance 0 mL/min (70-130); Calcium 10.1 mg/dL (7.8-10.44); Carbon Dioxide 26 mmol/L (23-31); Chloride 105 mmol/L (98-107); Estimated GFR-MDRD 77; Globulin 3.2 g/dL (2.4-3.5); Glucose 103 mg/dL (83-110); Potassium 3.6 mmol/L (3.5-5.1); Protein, Total 7.6 g/dL (6.0-8.3); Sodium 145 mmol/L (136-145)
[2018-02-28 22:42] LABS: Bilirubin Negative (Negative); Blood, Urine Negative (Negative); Clarity Clear (Clear); Glucose, Urine (Dipstick) Negative (Negative); Leukocyte Negative (Negative); Nitrite Negative (Negative); Protein, Urine (Dipstick) Negative (Neg-Trace); Urobilinogen 0.2 mg/dL (0.2-1.0)
[2018-02-28] MEDS ORDERED: predniSONE 10 MG TAB ONE (23:22)
[2018-02-28] MEDS ORDERED: predniSONE 20 MG TAB ONE (23:22)
== END 2018-03-01 00:04 | disposition home or self-care (01) ==
LOC: MADERS 21:31
DX: J44.1 Chronic obstructive pulmonary disease with (acute) exacerbation (principal); I10 Essential (primary) hypertension; F41.9 Anxiety disorder, unspecified; F32.9 Major depressive disorder, single episode, unspecified; Z87.891 Personal history of nicotine dependence; Z79.899 Other long term (current) drug therapy
CPT/HCPCS: 71046; 80053; 81003; 83605; 83880; 84484; 85025; 87040; 93005; 96365; J1956; J7050; J7506; J7512; J7620

== ENCOUNTER 2019-07-08 04:27 | Emergency (ER) | payer MEDICARE ==
[2019-07-08 05:25] LABS: #Basophils 0.1 thou/uL (0.0-0.2); #Lymphocytes 0.7 thou/uL (1.20-3.40); #Monocytes 0.4 thou/uL (0.11-0.59); #Neutrophils 7.9 thou/uL (1.40-6.50); %Basophils 0.9 % (0.0-1.0); %Eosinophils 0.3 % (0.0-10.0); %Lymphocytes 7.7 % (21.0-51.0); %Neutrophils 87.1 % (42.0-75.0); Hemoglobin 12.5 g/dL (12.0-16.0); Mean Corpuscular HGB CONC 31.4 g/dL (32.0-36.0); Mean Corpuscular Hemoglobin 28.5 pg (27.0-31.0); Mean Corpuscular Volume 90.9 fL (78.0-98.0); Mean Platelet Volume 7.3 fL (7.4-10.4); Platelet Count 301 thou/uL (130-400); RBC Distribution Width 12.7 % (11.5-14.5); Red Blood Cell (RBC) Count 4.39 mill/uL (4.20-5.40); White Blood Cell (WBC) Count 9.1 thou/uL (4.8-10.8)
[2019-07-08 05:33] LABS: ALT (SGPT) 16 U/L (8-55); AST (SGOT) 19 U/L (5-34); Albumin 4.6 g/dL (3.4-4.8); Alkaline Phosphatase 101 U/L (40-110); Anion Gap 15 mmol/L (10-20); BUN (Urea Nitrogen) 7 mg/dL (9.8-20.1); Bilirubin, Total 0.4 mg/dL (0.2-1.2); Calc. Creatinine Clearance 0 mL/min (70-130); Calcium 9.7 mg/dL (7.8-10.44); Carbon Dioxide 27 mmol/L (23-31); Chloride 100 mmol/L (98-107); Estimated GFR-MDRD 77; Glucose 145 mg/dL (83-110); Lipase 28 U/L (8-78); Potassium 3.4 mmol/L (3.5-5.1); Protein, Total 7.6 g/dL (6.0-8.3); Sodium 139 mmol/L (136-145)
[2019-07-08] MEDS ORDERED: Morphine 4 MG/ML VIAL ONE (05:44)
[2019-07-08] MEDS ORDERED: Ondansetron PF 4 MG/2 ML Vial ONE ×2 (05:44→07:01)
[2019-07-08 05:53] LABS: Bilirubin Negative (Negative); Blood, Urine Small (Negative); Clarity Clear (Clear); Glucose, Urine (Dipstick) 100 mg/dL (Negative); Leukocyte Negative (Negative); Nitrite Negative (Negative); Protein, Urine (Dipstick) Negative (Neg-Trace); Urobilinogen 0.2 mg/dL (Less than 2)
[2019-07-08 06:17] LABS: Bacteria/HPF Rare-Few HPF (None Seen); RBC/HPF 0-3 HPF (0-3); Squamous Epithelial 0-3 HPF (0-3); WBC/HPF 0-3 HPF (0-3)
[2019-07-08] MEDS ORDERED: Piperacillin/Tazobactam 4.5 GM VIAL ONE (06:58)
[2019-07-08] MEDS ORDERED: Sodium Chloride 0.9% 100 ML ONE (06:58)
--- NOTE | 2019-07-08 08:30 | CT ---
CT OF THE ABDOMEN AND PELVIS WITH IV CONTRAST: INDICATION: Right upper quadrant abdominal pain. FINDINGS: There is gallbladder wall thickening with associated layered gallstones. No focal hepatic lesion is evident. The pancreas, adrenal glands, and spleen appear within normal limits. There are tiny hypodensities involving both kidneys. There is a 4.4 mm nonobstructing calculus withi n the superior pole of the left kidney. There is an additional 3 mm calculus within the left mid kid angeline. No hydronephrosis is evident. There are moderate calcifications involving the abdominal aorta. There is mild ectasia of the inferior abdominal aorta measuring 2.2 cm. The unopacified large and small bowel are of normal caliber. No free fluid or enlarged lymph nodes evident. The reproductive structures are . The bladder, rectum, and perirectal soft tissues are unremarkable appearing. There is diffuse osteopenia. There is scattered and osteoarthritic change. There is a cephalomedull kesha device involving the proximal left femur with a healed intertrochanteric fracture. There is stab le superior end plate compression abnormality of T11 when compared to a CTA dated 08/20/2015. No acute osseous abnormality is evident. IMPRESSION: 1. Gallbladder wall thickening with layered gallstones. Recommend correlation for acute calculus ch olecystitis. Right upper quadrant ultrasound may be helpful. 2. Left nephrolithiasis and bilateral renal hypodensities, too small to characterize due to size. 3. Stable superior end plate compression abnormality of T11. POS:
[2019-07-08] MEDS ORDERED: Iopamidol 370 76% 100 ML VIAL ONE (11:50)
[2019-07-08] MEDS ORDERED: hydrALAZINE 20 MG/ML VIAL ONE (15:31)
[2019-07-08] MEDS ORDERED: Promethazine HCl 25 MG/ML VIAL ONE (15:35)
== END 2019-07-08 08:35 | disposition short-term general hospital (02) ==
LOC: MADERS 04:27
DX: K81.9 Cholecystitis, unspecified (principal); I10 Essential (primary) hypertension; J44.9 Chronic obstructive pulmonary disease, unspecified; F41.9 Anxiety disorder, unspecified; F32.9 Major depressive disorder, single episode, unspecified; Z87.891 Personal history of nicotine dependence
CPT/HCPCS: 74177; 80053; 81003; 81015; 82150; 83605; 83690; 85025; 93005; 96365; 96375; 96376; J0360; J2270; J2405; J2543; J2550; J3490; J7620; Q9967

== ENCOUNTER 2019-07-16 09:44 | Emergency (ER) | payer MEDICARE ==
--- NOTE | 2019-07-16 10:14 | RAD ---
EXAM: Single view of the chest HISTORY: Cough COMPARISON: 07/08/2019 FINDINGS: Single view of the chest shows a normal sized cardiomediastinal silhouette. Atheroscleroti c calcifications are seen in the aorta. There is no evidence of consolidation, mass, or pleural effusion. The bones are unremarkable. IMPRESSION: No evidence of acute cardiopulmonary disease
[2019-07-16] MEDS ORDERED: Sodium Chloride 0.9% 500 ML ONE (10:28)
[2019-07-16 11:18] LABS: ALT (SGPT) 26 U/L (8-55); AST (SGOT) 28 U/L (5-34); Albumin 4.3 g/dL (3.4-4.8); Alkaline Phosphatase 89 U/L (40-110); Anion Gap 14 mmol/L (10-20); BUN (Urea Nitrogen) 7 mg/dL (9.8-20.1); Bilirubin, Total 0.2 mg/dL (0.2-1.2); Calc. Creatinine Clearance 0 mL/min (70-130); Calcium 9.3 mg/dL (7.8-10.44); Carbon Dioxide 26 mmol/L (23-31); Chloride 108 mmol/L (98-107); Estimated GFR-MDRD 77; Globulin 2.8 g/dL (2.4-3.5); Glucose 86 mg/dL (83-110); Potassium 4.1 mmol/L (3.5-5.1); Protein, Total 7.1 g/dL (6.0-8.3); Sodium 144 mmol/L (136-145)
[2019-07-16 11:33] LABS: Anisocytosis SLIGHT = 6-15 cells (100X) (0-5/hpf); Band 2 % (5-11); Eosinophils 4 % (0-10); Hemoglobin 12.1 g/dL (12.0-16.0); Hypochromia SLIGHT = 6-15 cells (100X) (0-5/hpf); Lymphocytes 30 % (21-51); MDiff Complete? YES; Mean Corpuscular HGB CONC 29.7 g/dL (32.0-36.0); Mean Corpuscular Hemoglobin 28.1 pg (27.0-31.0); Mean Corpuscular Volume 94.7 fL (78.0-98.0); Mean Platelet Volume 6.6 fL (7.4-10.4); Monocytes 8 % (0-10); Neutrophil 56 % (42-75); Platelet Count 306 thou/uL (130-400); Platelet Morphology Comment Appears Adequate; RBC Distribution Width 13.4 % (11.5-14.5); Red Blood Cell (RBC) Count 4.31 mill/uL (4.20-5.40); White Blood Cell (WBC) Count 4.6 thou/uL (4.8-10.8)
[2019-07-16] MEDS ORDERED: Doxycycline 100 MG CAP ONE (11:47)
[2019-07-16] MEDS ORDERED: predniSONE 20 MG TAB ONE (11:47)
== END 2019-07-16 12:17 | disposition home or self-care (01) ==
LOC: MADERS 09:44
DX: J44.1 Chronic obstructive pulmonary disease with (acute) exacerbation (principal); B34.9 Viral infection, unspecified; F41.9 Anxiety disorder, unspecified; F32.9 Major depressive disorder, single episode, unspecified; Z87.891 Personal history of nicotine dependence
CPT/HCPCS: 36415; 71045; 80053; 83605; 83880; 84484; 85025; 87040; 87804; 93005; 94760; 96360; J7050; J7512; J7620

== ENCOUNTER 2019-08-26 16:34 | Emergency (ER) | payer MEDICARE ==
--- NOTE | 2019-08-26 17:52 | RAD ---
Chest one view HISTORY: Cough. COMPARISON: 08/06/2019. FINDINGS: Cardiac silhouette and pulmonary vasculature are unremarkable. Mediastinum is midline with aortic calcification. Lungs remain hyperinflated. No lobar consolidation or evidence of pneumothorax. Prominent degenerative changes of the shoulders. IMPRESSION: Atherosclerosis. Pulmonary hyperinflation and other chronic-type findings are stable.
[2019-08-26] MEDS ORDERED: predniSONE 20 MG TAB ONE (18:36)
== END 2019-08-26 19:00 | disposition home or self-care (01) ==
LOC: MADERS 16:34
DX: J44.1 Chronic obstructive pulmonary disease with (acute) exacerbation (principal); I10 Essential (primary) hypertension; Z87.891 Personal history of nicotine dependence
CPT/HCPCS: 71045; 93005; J7512

== ENCOUNTER 2019-09-12 19:47 | Emergency (ER) | payer MEDICARE ==
[2019-09-12 20:19] LABS: ALT (SGPT) 15 U/L (8-55); AST (SGOT) 12 U/L (5-34); Albumin 4.4 g/dL (3.4-4.8); Alkaline Phosphatase 77 U/L (40-110); Anion Gap 14 mmol/L (10-20); BUN (Urea Nitrogen) 6 mg/dL (9.8-20.1); Bilirubin, Total 0.4 mg/dL (0.2-1.2); Calc. Creatinine Clearance 0 mL/min (70-130); Calcium 9.7 mg/dL (7.8-10.44); Carbon Dioxide 27 mmol/L (23-31); Chloride 108 mmol/L (98-107); Estimated GFR-MDRD 72; Globulin 2.9 g/dL (2.4-3.5); Glucose 115 mg/dL (83-110); Magnesium 2.2 mg/dL (1.6-2.6); Potassium 3.5 mmol/L (3.5-5.1); Protein, Total 7.3 g/dL (6.0-8.3); Sodium 145 mmol/L (136-145)
[2019-09-12] MEDS ORDERED: Nitroglycerin 2% Ointment 1 INCH/1 GM Packet ONE (20:21)
[2019-09-12 20:27] LABS: Bilirubin Negative (Negative); Blood, Urine Trace (Negative); Clarity Clear (Clear); Glucose, Urine (Dipstick) Negative (Negative); Leukocyte Negative (Negative); Nitrite Negative (Negative); Protein, Urine (Dipstick) Negative (Neg-Trace); Urobilinogen 0.2 mg/dL (Less than 2)
[2019-09-12 20:31] LABS: Bacteria/HPF None Seen HPF (None Seen); RBC/HPF 0-3 HPF (0-3); Squamous Epithelial 0-3 HPF (0-3); WBC/HPF None Seen HPF (0-3)
[2019-09-12] MEDS ORDERED: methylPREDNISolone Sod Succ/PF 125 MG/2 ML VIAL ONE (20:34)
[2019-09-12 20:35] LABS: #Basophils 0.1 thou/uL (0.0-0.2); #Eosinphils 0.2 thou/uL (0.0-0.7); #Lymphocytes 1.4 thou/uL (1.20-3.40); #Monocytes 0.6 thou/uL (0.11-0.59); #Neutrophils 5.5 thou/uL (1.40-6.50); %Basophils 0.8 % (0.0-1.0); %Lymphocytes 17.5 % (21.0-51.0); %Monocytes 7.8 % (0.0-10.0); %Neutrophils 70.9 % (42.0-75.0); Hemoglobin 12.8 g/dL (12.0-16.0); Hypochromia MODERATE=16-30 cells (100X) (0-5/hpf); MDiff Complete? YES; Mean Corpuscular HGB CONC 29.7 g/dL (32.0-36.0); Mean Corpuscular Hemoglobin 27.8 pg (27.0-31.0); Mean Corpuscular Volume 93.6 fL (78.0-98.0); Mean Platelet Volume 6.8 fL (7.4-10.4); Platelet Count 302 thou/uL (130-400); Platelet Morphology Comment Appears Adequate; RBC Distribution Width 13.8 % (11.5-14.5); Red Blood Cell (RBC) Count 4.61 mill/uL (4.20-5.40); White Blood Cell (WBC) Count 7.7 thou/uL (4.8-10.8)
[2019-09-12] MEDS ORDERED: Sodium Chloride 0.9% 500 ML ONE (20:43)
--- NOTE | 2019-09-12 20:46 | RAD ---
PORTABLE CHEST: 09/12/19 HISTORY: Dyspnea. COMPARISON: 08/26/19 exam. Heart size is within normal limits. There are atherosclerotic changes of the aorta. Lungs are clear o f any infiltrative process. The bones are demineralized. IMPRESSION: No active intrathoracic disease. Stable chest. POS: [facility]
== END 2019-09-12 21:34 | disposition home or self-care (01) ==
LOC: MADERS 19:47
DX: J44.1 Chronic obstructive pulmonary disease with (acute) exacerbation (principal); I10 Essential (primary) hypertension; Z87.891 Personal history of nicotine dependence
CPT/HCPCS: 71045; 80053; 81003; 81015; 83735; 83880; 84484; 85025; 93005; 94760; 96361; 96374; J2930; J7050

== ENCOUNTER 2020-05-02 19:41 | Emergency (ER) | payer MEDICARE ==
[2020-05-02 20:29] LABS: Bilirubin Negative (Negative); Blood, Urine Small (Negative); Clarity Cloudy (Clear); Glucose, Urine (Dipstick) Negative (Negative); Ketone, Urine Negative (Negative); Leukocyte Moderate (Negative); Nitrite Positive (Negative); Protein, Urine (Dipstick) 30 mg/dL (Neg-Trace); Urobilinogen 0.2 mg/dL (Less than 2)
[2020-05-02 20:33] LABS: Bacteria/HPF 2+ HPF (None Seen); Squamous Epithelial 0-3 HPF (0-3); WBC/HPF Greater Than 50 HPF (0-3)
[2020-05-02 20:34] LABS: #Basophils 0.1 thou/uL (0.0-0.2); #Eosinphils 0.2 thou/uL (0.0-0.7); #Lymphocytes 1.6 thou/uL (1.20-3.40); #Monocytes 0.7 thou/uL (0.11-0.59); #Neutrophils 3.5 thou/uL (1.40-6.50); %Basophils 1.7 % (0.0-1.0); %Eosinophils 3.9 % (0.0-10.0); %Lymphocytes 25.7 % (21.0-51.0); %Neutrophils 57.7 % (42.0-75.0); Hemoglobin 12.2 g/dL (12.0-16.0); Mean Corpuscular HGB CONC 31.2 g/dL (32.0-36.0); Mean Corpuscular Hemoglobin 28.3 pg (27.0-31.0); Mean Corpuscular Volume 90.7 fL (78.0-98.0); Mean Platelet Volume 6.3 fL (7.4-10.4); Platelet Count 283 thou/uL (130-400); RBC Distribution Width 12.7 % (11.5-14.5)
[2020-05-02] MEDS ORDERED: Sodium Chloride 0.9% 100 ML ONE (20:38)
[2020-05-02] MEDS ORDERED: Dexamethasone 10 MG/ML VIAL ONE (20:38)
[2020-05-02] MEDS ORDERED: cefTRIAXone\\ROCEPHIN 2 GM VIAL ONE (20:38)
--- NOTE | 2020-05-02 20:39 | RAD ---
XR Chest 1 View Portable History: Chest pain Comparison: Radiograph September 12, 2019 Findings: Lungs are hyperinflated. No confluent airspace consolidation, pneumothorax or effusion. Adv anced degenerative changes both glenohumeral joints. Cardiac silhouette and mediastinal contours are similar. No acute osseous abnormality. Questionable mid thoracic spine compression deformity. Impression: 1. No acute intrathoracic abnormality. 2. Questionable midthoracic spine compression deformity. Lateral radiograph may be beneficial.
[2020-05-02 20:47] LABS: ALT (SGPT) 19 U/L (8-55); AST (SGOT) 19 U/L (5-34); Albumin 4.1 g/dL (3.4-4.8); Alkaline Phosphatase 79 U/L (40-110); Anion Gap 16 mmol/L (10-20); BUN (Urea Nitrogen) 16 mg/dL (9.8-20.1); Bilirubin, Total 0.2 mg/dL (0.2-1.2); Calc. Creatinine Clearance 0 mL/min (70-130); Calcium 9.2 mg/dL (7.8-10.44); Carbon Dioxide 24 mmol/L (23-31); Chloride 108 mmol/L (98-107); Estimated GFR-MDRD 70; Globulin 2.8 g/dL (2.4-3.5); Glucose 109 mg/dL (83-110); Potassium 3.9 mmol/L (3.5-5.1); Protein, Total 6.9 g/dL (6.0-8.3); Sodium 144 mmol/L (136-145)
== END 2020-05-02 21:49 | disposition home or self-care (01) ==
LOC: MADERS 19:41
DX: N39.0 Urinary tract infection, site not specified (principal); J44.9 Chronic obstructive pulmonary disease, unspecified; I10 Essential (primary) hypertension; Z87.891 Personal history of nicotine dependence; Z79.51 Long term (current) use of inhaled steroids; Z79.899 Other long term (current) drug therapy
CPT/HCPCS: 71045; 80053; 81003; 81015; 83605; 84484; 85025; 87040; 93005; 96365; 96375; J0696; J1100; J3490

== ENCOUNTER 2020-05-15 16:37 | Inpatient (IN) | payer MEDICARE, OTHER ==
[2020-05-15] MEDS ORDERED: Ketorolac Tromethamine 30 MG/ML VIAL ONE (17:03)
[2020-05-15 17:46] LABS: #Basophils 0.1 thou/uL (0.0-0.2); #Eosinphils 0.3 thou/uL (0.0-0.7); #Lymphocytes 1.1 thou/uL (1.20-3.40); #Neutrophils 8.8 thou/uL (1.40-6.50); %Eosinophils 2.8 % (0.0-10.0); %Lymphocytes 9.6 % (21.0-51.0); %Monocytes 8.9 % (0.0-10.0); %Neutrophils 77.6 % (42.0-75.0); Mean Corpuscular HGB CONC 31.3 g/dL (32.0-36.0); Mean Corpuscular Hemoglobin 28.7 pg (27.0-31.0); Mean Corpuscular Volume 91.9 fL (78.0-98.0); Mean Platelet Volume 6.8 fL (7.4-10.4); Platelet Count 267 thou/uL (130-400); RBC Distribution Width 13.2 % (11.5-14.5); Red Blood Cell (RBC) Count 4.16 mill/uL (4.20-5.40); White Blood Cell (WBC) Count 11.3 thou/uL (4.8-10.8)
[2020-05-15 17:52] LABS: Bilirubin Negative (Negative); Blood, Urine Trace (Negative); Clarity Cloudy (Clear); Glucose, Urine (Dipstick) Negative (Negative); Ketone, Urine Negative (Negative); Leukocyte Large (Negative); Nitrite Positive (Negative); Protein, Urine (Dipstick) Negative (Neg-Trace); Specific Gravity, Urine 1.015 (1.005-1.030); Urobilinogen 0.2 mg/dL (Less than 2)
[2020-05-15 17:59] LABS: ALT (SGPT) 13 U/L (8-55); AST (SGOT) 15 U/L (5-34); Alkaline Phosphatase 85 U/L (40-110); Anion Gap 19 mmol/L (10-20); BUN (Urea Nitrogen) 14 mg/dL (9.8-20.1); Bilirubin, Total 0.2 mg/dL (0.2-1.2); Calc. Creatinine Clearance 0 mL/min (70-130); Calcium 8.7 mg/dL (7.8-10.44); Carbon Dioxide 22 mmol/L (23-31); Chloride 108 mmol/L (98-107); Estimated GFR-MDRD 69; Globulin 2.9 g/dL (2.4-3.5); Glucose 101 mg/dL (83-110); Protein, Total 6.9 g/dL (6.0-8.3); Sodium 145 mmol/L (136-145)
[2020-05-15 18:16] LABS: Bacteria/HPF 4+ HPF (None Seen); Squamous Epithelial 0-3 HPF (0-3); WBC/HPF Greater Than 50 HPF (0-3)
--- NOTE | 2020-05-15 18:42 | CT ---
CT ABDOMEN AND PELVIS PERFORMED WITHOUT CONTRAST ENHANCEMENT: 05/15/20 HISTORY: Left flank pain. COMPARISON: A 08/06/19 exam. The lung bases show scarring. The liver, spleen and pancreas regions appear unremarkable given the l imitations of a noncontrast study. The gallbladder has been removed. Right and left adrenal glands ar e normal in appearance. There is a nonobstructing 5 to 6 mm left renal calculus. The small hypodensit y seen on the previous contrast CT within the kidneys are difficult to appreciate on this exam. There is no obstruction of either kidney and no ureteral calculi. The bladder is distended. No perinephric inflammatory change. No significant periaortic or mesenteric or pelvic lymphadenopathy. Postoperative changes of the left hip are noted. Appendix region appears unremarkable. Some minimal d iverticulosis changes. IMPRESSION: 1. Nonobstructing left renal calculus. 2. No acute findings of the abdomen or pelvis. POS: [facility]
[2020-05-15] MEDS ORDERED: Sodium Chloride 0.9% 100 ML ONE (18:46)
[2020-05-15] MEDS ORDERED: Acetaminophen 325 MG TAB ONE (18:46)
[2020-05-15] MEDS ORDERED: cefTRIAXone\\ROCEPHIN 2 GM VIAL ONE (18:46)
[2020-05-15] MEDS ORDERED: Acetaminophen 325 MG TAB PO PRN (19:42)
[2020-05-15] MEDS ORDERED: Ondansetron PF 4 MG/2 ML Vial IVP PRN (20:43)
[2020-05-15 20:45] VITALS: BMI 18.2
[2020-05-15] MEDS ORDERED: Sodium Chloride 0.9% 1,000 ML IV SCH (20:45)
[2020-05-15] MEDS ORDERED: Famotidine 40 MG/4 ML VIAL SLOW IVP SCH (21:00)
[2020-05-15 21:19] LABS: Lactic Acid 0.7 mmol/L (0.5-2.2)
[2020-05-15] MEDS ORDERED: Famotidine 20 MG TAB PO SCH (22:15)
[2020-05-15] MEDS: Acetaminophen 325 MG TAB PO PRN (23:07)
[2020-05-16 05:34] LABS: #Basophils 0.1 thou/uL (0.0-0.2); #Eosinphils 0.3 thou/uL (0.0-0.7); #Neutrophils 9.5 thou/uL (1.40-6.50); %Basophils 0.9 % (0.0-1.0); %Eosinophils 2.6 % (0.0-10.0); %Lymphocytes 8.5 % (21.0-51.0); %Monocytes 8.2 % (0.0-10.0); %Neutrophils 79.8 % (42.0-75.0); Hemoglobin 11.4 g/dL (12.0-16.0); Mean Corpuscular HGB CONC 31.6 g/dL (32.0-36.0); Mean Corpuscular Hemoglobin 28.8 pg (27.0-31.0); Mean Corpuscular Volume 91.1 fL (78.0-98.0); Mean Platelet Volume 7.1 fL (7.4-10.4); Platelet Count 270 thou/uL (130-400); RBC Distribution Width 13.1 % (11.5-14.5); Red Blood Cell (RBC) Count 3.95 mill/uL (4.20-5.40); White Blood Cell (WBC) Count 11.9 thou/uL (4.8-10.8)
[2020-05-16 05:44] LABS: Anion Gap 15 mmol/L (10-20); BUN (Urea Nitrogen) 10 mg/dL (9.8-20.1); Calc. Creatinine Clearance 53 mL/min (70-130); Calcium 8.8 mg/dL (7.8-10.44); Carbon Dioxide 26 mmol/L (23-31); Chloride 108 mmol/L (98-107); Estimated GFR-MDRD 86; Glucose 90 mg/dL (83-110); Potassium 3.3 mmol/L (3.5-5.1); Sodium 146 mmol/L (136-145)
[2020-05-16] MEDS ORDERED: cefTRIAXone\\ROCEPHIN 1 GM in Sodium Chloride 0.9% 100 ML IVPB SCH ×2 (06:00→08:00)
[2020-05-16] MEDS: Mometasone/Formoterol 200/5 60 PUFF INH SCH ×2 (06:31→18:06)
[2020-05-16] MEDS ORDERED: Potassium Chloride 20 MEQ TAB PO SCH (08:45)
[2020-05-16] MEDS: predniSONE 5 MG TAB PO SCH (08:56)
[2020-05-16] MEDS: Famotidine 20 MG TAB PO SCH ×2 (08:56→20:55)
[2020-05-16] MEDS: Docusate 100 MG CAP PO PRN (12:04)
[2020-05-16] MEDS: Bisacodyl 5 MG TAB PO PRN (12:04)
[2020-05-16] MEDS: Acetaminophen 325 MG TAB PO PRN (12:04)
--- NOTE | 2020-05-16 15:00 | HP ---
PRIMARY CARE PROVIDER: Daniel Kolb MD HISTORY OF PRESENT ILLNESS: The patient is an 79-year-old female who presented to the emergency department initially with left flank pain and fever. She was seen in the emergency department approximately 1 week ago and diagnosed with urinary tract infection, was discharged with Bactrim; however, the patient returned to the emergency department with continued pain and states that her pain never improved from that prior emergency department evaluation. She was febrile and tachycardic in the emergency department. She had a urinalysis, that confirmed presence of infection. She was given ceftriaxone as well as normal saline and Tylenol for fever. The decision was made to the patient for left pyelonephritis with failed outpatient treatment. Today, the patient states that she has experienced significant improvement in her symptoms. She has minimal left-sided low back pain, but otherwise has noted improvement. She has a history of COPD and is on chronic O2 and long-term steroid therapy with prednisone 5 mg daily. She states that she is at her normal level of breathing at this time. PAST MEDICAL HISTORY: 1. End-stage COPD, on chronic oxygen. 2. Hypertension. CURRENT MEDICATIONS: 1. Advair Diskus 250/50 1 INH BID 2. Diltiazem 180 mg PO daily 3. Dulcolax 10 mg [place] daily PRN 4. Duoneb 3ml NEB Q4H 5. Symbicort 80-4.5 1 INH daily 6. Prednisone 5 mg PO daily MEDICATION ALLERGIES: N.K.D.A PAST SURGICAL HISTORY: 1. Hysterectomy. 2. Left hip surgical repair. 3. Laparoscopic cholecystectomy. SOCIAL HISTORY: The patient denies current tobacco, alcohol, or drug use. She is a former smoker, who quit smoking about 10 years ago. She lives at home with her daughter, 2 granddaughters, and 1 great granddaughter. REVIEW OF SYSTEMS: GENERAL: The patient denies any fever, chills, or night sweats. HEENT: The patient denies vision changes, eye pain, or sore throat. CARDIOVASCULAR: The patient denies chest pain or palpitations. RESPIRATORY: The patient denies shortness of breath or cough. GI: The patient denies abdominal pain, nausea, or vomiting. GENITOURINARY: The patient denies dysuria. MUSCULOSKELETAL: The patient reports left low back pain. NEUROLOGIC: The patient denies any weakness, numbness, or tingling. PSYCHIATRIC: The patient denies anxiety or depression. PHYSICAL EXAMINATION: VITAL SIGNS: Temperature 98.7, pulse 106, respirations 20, oxygen 98% on 2 L, and blood pressure 163/77. GENERAL: The patient is alert and oriented x3, in no current distress. HEENT: Normocephalic and atraumatic. Extraocular muscles intact. Moist mucous membranes. CARDIOVASCULAR: Regular rate and rhythm. No murmurs, rubs, or gallops. RESPIRATORY: Decreased breath sounds diffusely, although lungs are clear. No wheezes, rhonchi, or rales. ABDOMEN: Soft. Mild right lower quadrant tenderness to palpation. No rebound or guarding. Nondistended. No organomegaly. EXTREMITIES: The patient moves all extremities well. Normal bulk and tone. NEUROLOGIC: Cranial nerves 2 through 12 intact grossly. PSYCHIATRIC: No anxiety or depression symptoms noted. Appropriate mood and affect. LABORATORY DATA: White blood cell count 11.9, hemoglobin 11.4, hematocrit 36.0, and platelet count 270. Chemistry: Sodium 146, potassium 3.3, chloride 108, carbon dioxide 26, BUN 10, creatinine 0.66, GFR 86, and glucose 90. Lactic acid improved from 2.1 to 0.7. Magnesium 1.9. Urine significant for trace blood, positive nitrites, large leukocyte esterase, 4-6 red blood cells, white blood cell count greater than 50, and 4+ bacteria. IMAGING STUDIES: CT scan of the abdomen and pelvis, stone protocol: Nonobstructing left renal calculus. No other acute findings of the abdomen or pelvis. ASSESSMENT AND PLAN: The patient is an 79-year-old female who presented to the emergency department after failed outpatient treatment of urinary tract infection. 1. Acute left-sided pyelonephritis. We will continue the patient on IV antibiotics. Urine culture and sensitivities have been sent off. We will change oral antibiotic regimen depending on the results. Blood cultures have been obtained and are pending. 2. End-stage chronic obstructive pulmonary disease without acute exacerbation. Continue the patient's home regimen of Advair. The patient uses DuoNeb q.4 h. as scheduled. We will make these available p.r.n. at this time. She is also on Symbicort at home. We will keep this p.r.n. as well. We will continue the patient's prednisone as well as supplemental oxygen. 3. Hypertension. We will continue diltiazem. Disposition, stable. Code status, full. Deep vein thrombosis prophylaxis, sequential compression devices. Job ID: [id number] MTDD
[2020-05-17 05:38] LABS: #Basophils 0.1 thou/uL (0.0-0.2); #Eosinphils 0.3 thou/uL (0.0-0.7); #Lymphocytes 1.1 thou/uL (1.20-3.40); #Monocytes 0.9 thou/uL (0.11-0.59); %Basophils 0.6 % (0.0-1.0); %Eosinophils 2.3 % (0.0-10.0); %Lymphocytes 8.8 % (21.0-51.0); %Monocytes 7.4 % (0.0-10.0); Mean Corpuscular HGB CONC 32.7 g/dL (32.0-36.0); Mean Corpuscular Hemoglobin 29.3 pg (27.0-31.0); Mean Corpuscular Volume 89.7 fL (78.0-98.0); Mean Platelet Volume 7.3 fL (7.4-10.4); Platelet Count 258 thou/uL (130-400); RBC Distribution Width 12.7 % (11.5-14.5); Red Blood Cell (RBC) Count 3.76 mill/uL (4.20-5.40); White Blood Cell (WBC) Count 12.3 thou/uL (4.8-10.8)
[2020-05-17 05:45] LABS: Anion Gap 14 mmol/L (10-20); BUN (Urea Nitrogen) 13 mg/dL (9.8-20.1); Calc. Creatinine Clearance 51 mL/min (70-130); Calcium 9.3 mg/dL (7.8-10.44); Carbon Dioxide 25 mmol/L (23-31); Chloride 109 mmol/L (98-107); Estimated GFR-MDRD 82; Glucose 109 mg/dL (83-110); Potassium 3.5 mmol/L (3.5-5.1); Sodium 144 mmol/L (136-145)
[2020-05-17] MEDS: Mometasone/Formoterol 200/5 60 PUFF INH SCH ×2 (06:18→17:53)
[2020-05-17] MEDS: Famotidine 20 MG TAB PO SCH ×2 (09:17→19:33)
[2020-05-17] MEDS: Cefdinir 300 MG CAP PO SCH ×2 (09:18→19:34)
[2020-05-17] MEDS: Docusate 100 MG CAP PO PRN (09:18)
[2020-05-17] MEDS: Bisacodyl 5 MG TAB PO PRN (09:18)
[2020-05-17] MEDS: Acetaminophen 325 MG TAB PO PRN ×2 (09:18→19:33)
[2020-05-17] MEDS: predniSONE 5 MG TAB PO SCH (09:18)
[2020-05-17 13:21] LABS: SARS-CoV-2 MS2 Positive; SARS-CoV-2 N Gene Negative; SARS-CoV-2 S Gene Negative; SARS-CoV-2 by NAA Not Detected (NotDetected); SARS-CoV-2 orf1ab Negative
[2020-05-18] MEDS: Mometasone/Formoterol 200/5 60 PUFF INH SCH ×2 (05:59→08:03)
[2020-05-18] MEDS: predniSONE 5 MG TAB PO SCH (08:03)
[2020-05-18] MEDS: Famotidine 20 MG TAB PO SCH (08:03)
[2020-05-18] MEDS: Cefdinir 300 MG CAP PO SCH (08:03)
[2020-05-18 12:25] VITALS: BP 168/93; TEMP 97.9
--- NOTE | 2020-05-19 13:34 | DIS ---
DATE OF ADMISSION: 05/15/2020 DATE OF DISCHARGE: 05/18/2020 ADMITTING AND DISCHARGING ATTENDING: Marianne Krishna MD. PRIMARY DIAGNOSES: 1. Acute pyelonephritis, resolved. 2. End-stage chronic obstructive pulmonary disease, on chronic oxygen. 3. Hypertension. DISCHARGE MEDICATIONS: 1. Advair Diskus 250/50 one inhalation b.i.d. 2. Symbicort 80/4.5 one inhalation daily. 3. Dulcolax 10 mg p.r. daily p.r.n. 4. DuoNebs 3 mL nebs q.4 hours p.r.n. 5. Cardizem 180 mg p.o. daily. 6. Prednisone 5 mg p.o. daily. 7. Cefdinir 300 mg p.o. b.i.d., dispense 9 capsules. Discontinued medications, none. HISTORY OF PRESENT ILLNESS: The patient is an 79-year-old female who was admitted for treatment of acute pyelonephritis after failed outpatient treatment. The patient was initially treated with IV antibiotics. Urine culture resulted positive for E coli with multiple sensitivities; however, resistant to the Bactrim that she was treated with outpatient. The patient tolerated treatment with oral Cefdinir very well and was reporting significant improvement of symptoms at the time of discharge. The patient was evaluated on the date of discharge. Vitals were as follows; temperature 97.8, pulse 100, respirations 18, oxygen 94% on 2 L, blood pressure 156/69. Examination was largely unremarkable. DISPOSITION: Stable. DISCHARGE INSTRUCTIONS: 1. Location, home. 2. Activity, ad kwame. 3. Diet, heart healthy. 4. Followup. The patient was previously seeing Dr. Kolb; however, she states that driving to [place] is no longer feasible for her. Arrangements have been made for her to follow up with myself, Marianne Krishna MD, within 7 to 10 days. Job ID: [id number]
--- NOTE | 2020-05-20 14:21 | PRG ---
DATE OF SERVICE: 05/17/2020 SUBJECTIVE: The patient is seen and examined at the bedside. She does report improvement in her abdominal pain and low back pain. She states that she is feeling weak today, but otherwise has no complaints. No adverse events overnight. OBJECTIVE: VITAL SIGNS: Temperature 97, pulse 86, respirations 20, oxygen 96% on 2 L, blood pressure 173/76. GENERAL: The patient is alert and oriented, in no distress. HEENT: Normocephalic, atraumatic. Moist mucous membranes. CARDIOVASCULAR: Regular rate and rhythm. No murmurs, rubs, or gallops. LUNGS: Clear to auscultation bilaterally. ABDOMEN: Soft, nontender to palpation. Nondistended. EXTREMITIES: No cyanosis or edema. Normal bulk and tone. LABORATORY DATA: Microbiology; urine culture positive for E coli, resistant to Bactrim with multiple sensitivities. ASSESSMENT: 1. Acute pyelonephritis with failed outpatient antibiotic treatment. 2. Chronic obstructive pulmonary disease without exacerbation. 3. Hypertension. PLAN: We will transition patient off IV antibiotics today to cefdinir 300 mg p.o. twice daily. If the patient is able to tolerate this regimen today, we will consider likely discharge tomorrow. The patient's chronic medical problems are stable at this time. Job ID: [id number]
== END 2020-05-18 14:35 | disposition home or self-care (01) | DRG 690 ==
LOC: MADERS 16:37 → MADMS 19:23
PROVIDERS: ADMIT Family Medicine; ATTEND Family Medicine
DX: N10 Acute pyelonephritis (principal); J44.9 Chronic obstructive pulmonary disease, unspecified; I10 Essential (primary) hypertension; Z90.710 Acquired absence of both cervix and uterus; Z99.81 Dependence on supplemental oxygen; Z90.49 Acquired absence of other specified parts of digestive tract; Z98.890 Other specified postprocedural states; Z87.891 Personal history of nicotine dependence; Z79.51 Long term (current) use of inhaled steroids; Z20.828 Contact with and (suspected) exposure to other viral communicable diseases
CPT/HCPCS: 36415; 74176; 80048; 80053; 81003; 81015; 83605; 83735; 85025; 87040; 87077; 87086; 87186; 87635; 96365; 96375; J0696; J1885; J3490; J7512; J7620; U0003

== ENCOUNTER 2021-02-23 23:41 | Emergency (ER) | payer MEDICARE ==
[2021-02-24] MEDS ORDERED: Amlodipine 5 MG TAB ONE (00:14)
[2021-02-24 00:31] LABS: #Basophils 0.1 thou/uL (0.0-0.2); #Eosinphils 0.3 thou/uL (0.0-0.7); #Lymphocytes 1.7 thou/uL (1.20-3.40); #Monocytes 0.7 thou/uL (0.11-0.59); #Neutrophils 4.8 thou/uL (1.40-6.50); %Basophils 1.2 % (0.0-1.0); %Eosinophils 4.3 % (0.0-10.0); %Lymphocytes 22.1 % (21.0-51.0); %Monocytes 8.6 % (0.0-10.0); %Neutrophils 63.8 % (42.0-75.0); Hemoglobin 12.8 g/dL (12.0-16.0); Mean Corpuscular HGB CONC 31.2 g/dL (32.0-36.0); Mean Corpuscular Hemoglobin 28.7 pg (27.0-31.0); Mean Platelet Volume 7.5 fL (7.4-10.4); Platelet Count 274 thou/uL (130-400); RBC Distribution Width 12.9 % (11.5-14.5); Red Blood Cell (RBC) Count 4.46 mill/uL (4.20-5.40); White Blood Cell (WBC) Count 7.6 thou/uL (4.8-10.8)
[2021-02-24 00:50] LABS: CKMB 1.8 ng/mL (0-6.6)
[2021-02-24 00:52] LABS: ALT (SGPT) 10 U/L (8-55); AST (SGOT) 15 U/L (5-34); Albumin 4.5 g/dL (3.4-4.8); Alkaline Phosphatase 88 U/L (40-110); Anion Gap 15 mmol/L (10-20); BUN (Urea Nitrogen) 17 mg/dL (9.8-20.1); Bilirubin, Total 0.3 mg/dL (0.2-1.2); CK (CPK) 66 U/L (29-168); Calc. Creatinine Clearance 0 mL/min (70-130); Calcium 9.6 mg/dL (7.8-10.44); Carbon Dioxide 25 mmol/L (23-31); Chloride 106 mmol/L (98-107); Globulin 2.5 g/dL (2.4-3.5); Glucose 94 mg/dL (83-110); Potassium 4.1 mmol/L (3.5-5.1); Sodium 142 mmol/L (136-145)
== END 2021-02-24 01:19 | disposition home or self-care (01) ==
LOC: MADERS 23:41
DX: I10 Essential (primary) hypertension (principal); J44.9 Chronic obstructive pulmonary disease, unspecified; Z87.891 Personal history of nicotine dependence; Z79.899 Other long term (current) drug therapy
CPT/HCPCS: 71045; 80053; 82550; 82553; 84484; 85025; 93005

== ENCOUNTER 2021-02-26 02:11 | Emergency (ER) | payer MEDICARE ==
[2021-02-26] MEDS ORDERED: hydrOXYzine 25 MG TAB ONE (02:21)
[2021-02-26] MEDS ORDERED: Lisinopril 10 MG TAB ONE ×2 (02:21→02:22)
== END 2021-02-26 08:17 | disposition home or self-care (01) ==
LOC: MADERS 02:11
DX: Z00.00 Encounter for general adult medical examination without abnormal findings (principal); I10 Essential (primary) hypertension; J44.9 Chronic obstructive pulmonary disease, unspecified; Z87.891 Personal history of nicotine dependence; Z99.81 Dependence on supplemental oxygen
CPT/HCPCS: 99284

== ENCOUNTER 2021-07-11 10:31 | Emergency (ER) | payer MEDICARE ==
[2021-07-11] MEDS ORDERED: Iopamidol 370 76% 125 ML VIAL FS ONE (10:32)
[2021-07-11] MEDS ORDERED: Sodium Chloride 0.9% 100 ML BAG IVPB ONE (10:32)
[2021-07-11] MEDS ORDERED: Sodium Chloride 0.9% 100 ML ONE (11:16)
[2021-07-11] MEDS ORDERED: methylPREDNISolone Sod Succ/PF 125 MG/2 ML VIAL ONE (11:17)
[2021-07-11] MEDS ORDERED: cefTRIAXone\\ROCEPHIN 1 GM VIAL ONE (11:17)
[2021-07-11] MEDS ORDERED: Aspirin Chewable 81 MG TAB ONE (11:17)
[2021-07-11 11:18] LABS: #Basophils 0.1 thou/uL (0.0-0.2); #Eosinphils 0.2 thou/uL (0.0-0.7); #Lymphocytes 0.8 thou/uL (1.20-3.40); #Monocytes 0.9 thou/uL (0.11-0.59); #Neutrophils 4.6 thou/uL (1.40-6.50); %Basophils 1.6 % (0.0-1.0); %Eosinophils 3.3 % (0.0-10.0); %Lymphocytes 12.6 % (21.0-51.0); %Monocytes 13.8 % (0.0-10.0); %Neutrophils 68.8 % (42.0-75.0); Hemoglobin 11.8 g/dL (12.0-16.0); Mean Corpuscular HGB CONC 31.5 g/dL (32.0-36.0); Mean Corpuscular Hemoglobin 28.8 pg (27.0-31.0); Mean Corpuscular Volume 91.3 fL (78.0-98.0); Mean Platelet Volume 7.7 fL (7.4-10.4); Platelet Count 213 thou/uL (130-400); RBC Distribution Width 12.8 % (11.5-14.5); White Blood Cell (WBC) Count 6.6 thou/uL (4.8-10.8)
[2021-07-11 11:33] LABS: ALT (SGPT) 12 U/L (8-55); AST (SGOT) 18 U/L (5-34); Alkaline Phosphatase 80 U/L (40-110); Anion Gap 12 mmol/L (10-20); BUN (Urea Nitrogen) 16 mg/dL (9.8-20.1); Bilirubin, Total 0.4 mg/dL (0.2-1.2); CK (CPK) 31 U/L (29-168); Calc. Creatinine Clearance 0 mL/min (70-130); Calcium 9.4 mg/dL (7.8-10.44); Carbon Dioxide 28 mmol/L (23-31); Chloride 105 mmol/L (98-107); Globulin 2.9 g/dL (2.4-3.5); Glucose 136 mg/dL (83-110); Potassium 3.6 mmol/L (3.5-5.1); Protein, Total 6.9 g/dL (5.8-8.1); Sodium 141 mmol/L (136-145)
[2021-07-11] MEDS ORDERED: Acetaminophen 500 MG TAB ONE (12:03)
[2021-07-11] MEDS ORDERED: Azithromycin 500 MG VIAL ONE (12:03)
[2021-07-11] MEDS ORDERED: Sodium Chloride 0.9% 250 ML 250 ML ONE (12:03)
[2021-07-11] MEDS ORDERED: Sodium Chloride 0.9% 1,000 ML ONE (12:03)
[2021-07-11 12:36] LABS: Bilirubin Negative (Negative); Blood, Urine Trace (Negative); Clarity Clear (Clear); Glucose, Urine (Dipstick) Negative (Negative); Ketone, Urine Negative (Negative); Leukocyte Negative (Negative); Nitrite Negative (Negative); Protein, Urine (Dipstick) Negative (Neg-Trace); Specific Gravity, Urine 1.015 (1.005-1.030); Urobilinogen 0.2 mg/dL (Less than 2)
[2021-07-11 12:38] LABS: Bacteria/HPF None Seen HPF (None Seen); Other Microscopic Description C&S SET UP; RBC/HPF 0-3 HPF (0-3); Squamous Epithelial 0-3 HPF (0-3); WBC/HPF None Seen HPF (0-3)
[2021-07-11 13:22] LABS: SARS-CoV-2 NAA Rapid Test Not Detected (NotDetected)
== END 2021-07-11 14:50 | disposition short-term general hospital (02) ==
LOC: MADERS 10:31
DX: J44.1 Chronic obstructive pulmonary disease with (acute) exacerbation (principal); Z20.822 Contact with and (suspected) exposure to COVID-19; I10 Essential (primary) hypertension; Z87.891 Personal history of nicotine dependence; Z79.899 Other long term (current) drug therapy
CPT/HCPCS: 0240U; 36415; 71275; 80053; 81003; 81015; 82550; 83605; 83880; 84443; 84484; 85025; 87040; 87086; 93005; 96365; 96367; 96375; J0456; J0696; J2930; J3490; J7050; J7620; Q9967

== ENCOUNTER 2021-08-02 17:25 | Emergency (ER) | payer MEDICARE ==
[2021-08-02] MEDS ORDERED: Lactated Ringer's 1,000 ML ONE (18:00)
[2021-08-02] MEDS ORDERED: Ipratropium Bromide 2.5 ml Neb ONE (18:01)
[2021-08-02] MEDS ORDERED: Albuterol Sulfate 2.5 mg/0.5 ml Neb ONE (18:01)
[2021-08-02 18:05] LABS: #Basophils 0.1 thou/uL (0.0-0.2); #Eosinphils 0.7 thou/uL (0.0-0.7); #Lymphocytes 0.9 thou/uL (1.20-3.40); #Monocytes 0.8 thou/uL (0.11-0.59); #Neutrophils 4.5 thou/uL (1.40-6.50); %Eosinophils 10.2 % (0.0-10.0); %Lymphocytes 13.3 % (21.0-51.0); %Monocytes 10.8 % (0.0-10.0); %Neutrophils 64.7 % (42.0-75.0); Hemoglobin 12.4 g/dL (12.0-16.0); Mean Corpuscular HGB CONC 31.1 g/dL (32.0-36.0); Mean Corpuscular Hemoglobin 28.1 pg (27.0-31.0); Mean Corpuscular Volume 90.4 fL (78.0-98.0); Mean Platelet Volume 6.9 fL (7.4-10.4); Platelet Count 309 thou/uL (130-400); RBC Distribution Width 11.8 % (11.5-14.5); Red Blood Cell (RBC) Count 4.41 mill/uL (4.20-5.40); White Blood Cell (WBC) Count 6.9 thou/uL (4.8-10.8)
[2021-08-02] MEDS ORDERED: methylPREDNISolone Sod Succ/PF 125 MG/2 ML VIAL ONE ×2 (18:21→19:05)
[2021-08-02 18:23] LABS: ALT (SGPT) 15 U/L (8-55); AST (SGOT) 15 U/L (5-34); Albumin 4.1 g/dL (3.4-4.8); Alkaline Phosphatase 72 U/L (40-110); Anion Gap 14 mmol/L (10-20); BUN (Urea Nitrogen) 12 mg/dL (9.8-20.1); Bilirubin, Total 0.4 mg/dL (0.2-1.2); Calc. Creatinine Clearance 0 mL/min (70-130); Calcium 9.8 mg/dL (7.8-10.44); Carbon Dioxide 33 mmol/L (23-31); Chloride 97 mmol/L (98-107); Globulin 3.6 g/dL (2.4-3.5); Glucose 174 mg/dL (83-110); Magnesium 1.9 mg/dL (1.6-2.6); Potassium 3.2 mmol/L (3.5-5.1); Protein, Total 7.7 g/dL (5.8-8.1); Sodium 141 mmol/L (136-145)
[2021-08-02 18:56] LABS: Bilirubin Negative (Negative); Blood, Urine Negative (Negative); Clarity Clear (Clear); Glucose, Urine (Dipstick) Negative (Negative); Ketone, Urine Negative (Negative); Leukocyte Negative (Negative); Nitrite Negative (Negative); Protein, Urine (Dipstick) Negative (Neg-Trace); Specific Gravity, Urine 1.015 (1.005-1.030); Urobilinogen 0.2 mg/dL (Less than 2); pH, Urine 6.5 (5.0-9.0)
[2021-08-02 19:01] LABS: SARS-CoV-2 NAA Rapid Test Not Detected (NotDetected)
[2021-08-02] MEDS ORDERED: Potassium Chloride 20 MEQ TAB ONE (19:01)
== END 2021-08-02 21:20 | disposition home or self-care (01) ==
LOC: MADERS 17:25
DX: J44.1 Chronic obstructive pulmonary disease with (acute) exacerbation (principal); R00.0 Tachycardia, unspecified; Z20.822 Contact with and (suspected) exposure to COVID-19; I10 Essential (primary) hypertension; Z87.891 Personal history of nicotine dependence
CPT/HCPCS: 71045; 80053; 81003; 83605; 83735; 84439; 84443; 84484; 85025; 87040; 87804; 93005; 94760; 96374; J2930; J7120; J7611; U0002

== ENCOUNTER 2021-10-03 14:04 | Emergency (ER) | payer MEDICARE ==
[~2021-10-03 14:04] MED LIST changes: +Sodium Chloride 0.9% 1,000 ML BAG ONE; -Sodium Chloride 0.9% 500 ML BAG ONE
[2021-10-03 16:27] LABS: #Basophils 0.1 thou/uL (0.0-0.2); #Eosinphils 0.2 thou/uL (0.0-0.7); #Lymphocytes 1.1 thou/uL (1.20-3.40); #Monocytes 0.7 thou/uL (0.11-0.59); #Neutrophils 4.8 thou/uL (1.40-6.50); %Basophils 1.1 % (0.0-1.0); %Eosinophils 2.3 % (0.0-10.0); %Lymphocytes 16.5 % (21.0-51.0); %Monocytes 9.8 % (0.0-10.0); %Neutrophils 70.2 % (42.0-75.0); Hemoglobin 11.7 g/dL (12.0-16.0); Mean Corpuscular Volume 90.5 fL (78.0-98.0); Mean Platelet Volume 7.1 fL (7.4-10.4); Platelet Count 284 thou/uL (130-400); RBC Distribution Width 13.3 % (11.5-14.5); Red Blood Cell (RBC) Count 4.04 mill/uL (4.20-5.40); White Blood Cell (WBC) Count 6.8 thou/uL (4.8-10.8)
[2021-10-03 16:29] LABS: ALT (SGPT) 9 U/L (8-55); AST (SGOT) 16 U/L (5-34); Alkaline Phosphatase 64 U/L (40-110); Anion Gap 14 mmol/L (10-20); BUN (Urea Nitrogen) 18 mg/dL (9.8-20.1); Bilirubin, Total 0.3 mg/dL (0.2-1.2); Calc. Creatinine Clearance 0 mL/min (70-130); Calcium 9.6 mg/dL (7.8-10.44); Carbon Dioxide 28 mmol/L (23-31); Chloride 106 mmol/L (98-107); Globulin 2.5 g/dL (2.4-3.5); Glucose 109 mg/dL (83-110); Potassium 3.7 mmol/L (3.5-5.1); Protein, Total 6.5 g/dL (5.8-8.1); Sodium 144 mmol/L (136-145)
[2021-10-03 17:36] LABS: Bilirubin Negative (Negative); Blood, Urine Negative (Negative); Glucose, Urine (Dipstick) Negative (Negative); Ketone, Urine 15 mg/dL (Negative); Leukocyte Trace (Negative); Nitrite Negative (Negative); Protein, Urine (Dipstick) Negative (Neg-Trace); Urobilinogen 0.2 mg/dL (Less than 2)
[2021-10-03 17:38] LABS: Clarity Hazy (Clear)
[2021-10-03 17:41] LABS: Bacteria/HPF 2+ HPF (None Seen); RBC/HPF 0-3 HPF (0-3); Squamous Epithelial 0-3 HPF (0-3); WBC/HPF 21-50 HPF (0-3)
[2021-10-03] MEDS ORDERED: Cephalexin 500 MG CAP ONE (18:29)
== END 2021-10-03 18:32 | disposition home or self-care (01) ==
LOC: MADERS 14:04
DX: N39.0 Urinary tract infection, site not specified (principal); E86.9 Volume depletion, unspecified; I10 Essential (primary) hypertension; J44.9 Chronic obstructive pulmonary disease, unspecified; Z87.891 Personal history of nicotine dependence; Z79.899 Other long term (current) drug therapy
CPT/HCPCS: 36415; 71045; 80053; 81003; 81015; 84484; 85025; 87077; 87086; 87186; 93005; J7050

== ENCOUNTER 2021-10-29 23:58 | Emergency (ER) | payer MEDICARE | END 2021-10-30 01:35 | disposition home or self-care (01) | LOC: MADERS 23:58 | DX: S63.502A Unspecified sprain of left wrist, initial encounter (principal); S00.03XA Contusion of scalp, initial encounter; S20.222A Contusion of left back wall of thorax, initial encounter; I10 Essential (primary) hypertension; Z87.891 Personal history of nicotine dependence; J44.9 Chronic obstructive pulmonary disease, unspecified; Z79.899 Other long term (current) drug therapy; W19.XXXA Unspecified fall, initial encounter | CPT/HCPCS: 70450; 72125 ==

== ENCOUNTER 2022-01-14 03:35 | Emergency (ER) | payer MEDICARE ==
[2022-01-14] MEDS ORDERED: Nitroglycerin 2% Ointment 1 INCH/1 GM Packet ONE (04:14)
[2022-01-14] MEDS ORDERED: Aspirin 325 MG TAB ONE (04:15)
[2022-01-14 04:22] LABS: #Basophils 0.1 thou/uL (0.0-0.2); #Eosinphils 0.1 thou/uL (0.0-0.7); #Lymphocytes 1.6 thou/uL (1.20-3.40); #Neutrophils 6.9 thou/uL (1.40-6.50); %Eosinophils 1.5 % (0.0-10.0); %Lymphocytes 16.2 % (21.0-51.0); %Monocytes 10.5 % (0.0-10.0); %Neutrophils 70.7 % (42.0-75.0); Hemoglobin 13.1 g/dL (12.0-16.0); Mean Corpuscular HGB CONC 31.8 g/dL (32.0-36.0); Mean Corpuscular Hemoglobin 28.3 pg (27.0-31.0); Mean Corpuscular Volume 88.7 fL (78.0-98.0); Mean Platelet Volume 8.4 fL (7.4-10.4); Platelet Count 240 thou/uL (130-400); RBC Distribution Width 13.6 % (11.5-14.5); Red Blood Cell (RBC) Count 4.63 mill/uL (4.20-5.40); White Blood Cell (WBC) Count 9.7 thou/uL (4.8-10.8)
[2022-01-14 04:41] LABS: ALT (SGPT) 11 U/L (8-55); AST (SGOT) 13 U/L (5-34); Albumin 4.6 g/dL (3.4-4.8); Alkaline Phosphatase 75 U/L (40-110); Anion Gap 20 mmol/L (10-20); BUN (Urea Nitrogen) 18 mg/dL (9.8-20.1); Bilirubin, Total 0.3 mg/dL (0.2-1.2); Calc. Creatinine Clearance 0 mL/min (70-130); Calcium 10.2 mg/dL (7.8-10.44); Carbon Dioxide 27 mmol/L (23-31); Chloride 103 mmol/L (98-107); Glucose 104 mg/dL (83-110); Lipase 39 U/L (8-78); Potassium 3.7 mmol/L (3.5-5.1); Protein, Total 7.6 g/dL (5.8-8.1); Sodium 146 mmol/L (136-145)
[2022-01-14] MEDS ORDERED: Sodium Chloride 0.9% 1,000 ML ONE (05:11)
[2022-01-14 08:15] LABS: Troponin I 0.012 ng/mL (< 0.028)
[2022-01-14] MEDS ORDERED: Iopamidol 370 76% 125 ML VIAL FS ONE (12:35)
== END 2022-01-14 13:12 | disposition short-term general hospital (02) ==
LOC: MADERS 03:35
DX: I10 Essential (primary) hypertension (principal); J44.9 Chronic obstructive pulmonary disease, unspecified; Z79.899 Other long term (current) drug therapy; Z79.51 Long term (current) use of inhaled steroids; Z79.52 Long term (current) use of systemic steroids
CPT/HCPCS: 36415; 71045; 71275; 74174; 80053; 83690; 84484; 85025; 85379; 93005; J7050; Q9967

== ENCOUNTER 2022-08-28 21:28 | Emergency (ER) | payer MEDICARE ==
[2022-08-28 22:07] LABS: #Basophils 0.1 thou/uL (0.0-0.2); #Eosinphils 0.1 thou/uL (0.0-0.7); #Lymphocytes 1.2 thou/uL (1.20-3.40); #Monocytes 1.2 thou/uL (0.11-0.59); #Neutrophils 7.1 thou/uL (1.40-6.50); %Basophils 0.9 % (0.0-1.0); %Eosinophils 1.3 % (0.0-10.0); %Lymphocytes 12.6 % (21.0-51.0); %Monocytes 11.9 % (0.0-10.0); %Neutrophils 73.3 % (42.0-75.0); Hemoglobin 12.2 g/dL (12.0-16.0); Mean Corpuscular HGB CONC 33.1 g/dL (32.0-36.0); Mean Corpuscular Hemoglobin 30.1 pg (27.0-31.0); Mean Platelet Volume 7.1 fL (7.4-10.4); Platelet Count 240 10x3/uL (130-400); RBC Distribution Width 12.2 % (11.5-14.5); Red Blood Cell (RBC) Count 4.05 mill/uL (4.20-5.40); White Blood Cell (WBC) Count 9.7 10x3/uL (4.8-10.8)
[2022-08-28 22:26] LABS: ALT (SGPT) 17 U/L (8-55); AST (SGOT) 15 U/L (5-34); Alkaline Phosphatase 92 U/L (40-110); Anion Gap 13 mmol/L (10-20); BUN (Urea Nitrogen) 18 mg/dL (9.8-20.1); Bilirubin, Total 0.4 mg/dL (0.2-1.2); CRP (Inflammatory) Less than 0.50 mg/dL (= or < 0.5); Calc. Creatinine Clearance 0 mL/min (70-130); Calcium 9.9 mg/dL (7.8-10.44); Carbon Dioxide 30 mmol/L (23-31); Chloride 106 mmol/L (98-107); Estimated GFR 57; Globulin 2.7 g/dL (2.4-3.5); Glucose 98 mg/dL (83-110); Lipase 45 U/L (8-78); Magnesium 2.4 mg/dL (1.6-2.6); Potassium 3.8 mmol/L (3.5-5.1); Protein, Total 6.7 g/dL (5.8-8.1); Sodium 145 mmol/L (136-145)
[2022-08-28 22:30] LABS: Bacteria/HPF 2+ HPF (None Seen); Bilirubin Negative (Negative); Blood, Urine Trace (Negative); Clarity Clear (Clear); Glucose, Urine (Dipstick) Negative (Negative); Ketone, Urine Negative (Negative); Leukocyte Small (Negative); Nitrite Negative (Negative); Protein, Urine (Dipstick) 30 mg/dL (Neg-Trace); RBC/HPF 0-3 HPF (0-3); Specific Gravity, Urine 1.015 (1.005-1.030); Squamous Epithelial 0-3 HPF (0-3); Urobilinogen 0.2 mg/dL (Less than 2)
[2022-08-28] MEDS ORDERED: methylPREDNISolone Sod Succ/PF 125 MG/2 ML VIAL ONE (22:30)
[2022-08-28] MEDS ORDERED: Ipratropium/Albuterol 3 ML NEB ONE (22:30)
[2022-08-28] MEDS ORDERED: cefTRIAXone\\ROCEPHIN 2 GM VIAL ONE (23:48)
[2022-08-28] MEDS ORDERED: Sodium Chloride 0.9% 100 ML ONE (23:48)
[2022-08-28] MEDS ORDERED: Ketorolac Tromethamine 30 MG/ML VIAL ONE (23:48)
== END 2022-08-29 00:54 | disposition home or self-care (01) ==
LOC: MADERS 21:28
DX: J44.1 Chronic obstructive pulmonary disease with (acute) exacerbation (principal); R07.89 Other chest pain; I10 Essential (primary) hypertension; J44.9 Chronic obstructive pulmonary disease, unspecified; Z87.891 Personal history of nicotine dependence
CPT/HCPCS: 36415; 71045; 80053; 81003; 81015; 83690; 83735; 84484; 85025; 86140; 93005; 96374; 96375; J0696; J1885; J2930; J3490; J7620

== ENCOUNTER 2022-10-02 17:56 | Emergency (ER) | payer MEDICARE ==
[~2022-10-02 17:56] MED LIST changes: +Iopamidol 370 76% 125 ML VIAL FS ONE; -Sodium Chloride 0.9% 1,000 ML BAG ONE; +Sodium Chloride 0.9% 100 ML BAG ONE
[2022-10-02] MEDS ORDERED: Morphine 2 MG/ML VIAL ONE (18:11)
[2022-10-02] MEDS ORDERED: Ondansetron PF 4 MG/2 ML Vial ONE (18:11)
[2022-10-02] MEDS ORDERED: Ipratropium/Albuterol 3 ML NEB ONE (18:12)
[2022-10-02] MEDS ORDERED: methylPREDNISolone Sod Succ/PF 125 MG/2 ML VIAL ONE (18:12)
[2022-10-02 18:57] LABS: #Basophils 0.1 thou/uL (0.0-0.2); #Eosinphils 0.2 thou/uL (0.0-0.7); #Lymphocytes 1.5 thou/uL (1.20-3.40); #Neutrophils 6.3 thou/uL (1.40-6.50); %Basophils 0.9 % (0.0-1.0); %Eosinophils 2.6 % (0.0-10.0); %Lymphocytes 16.5 % (21.0-51.0); %Monocytes 10.9 % (0.0-10.0); %Neutrophils 69.1 % (42.0-75.0); Hemoglobin 11.1 g/dL (12.0-16.0); Mean Corpuscular HGB CONC 33.4 g/dL (32.0-36.0); Mean Corpuscular Hemoglobin 30.1 pg (27.0-31.0); Mean Corpuscular Volume 90.2 fl (78.0-98.0); Mean Platelet Volume 6.5 fL (7.4-10.4); Platelet Count 213 10x3/uL (130-400); RBC Distribution Width 12.1 % (11.5-14.5); Red Blood Cell (RBC) Count 3.67 mill/uL (4.20-5.40); White Blood Cell (WBC) Count 9.1 10x3/uL (4.8-10.8)
[2022-10-02 19:00] LABS: ALT (SGPT) 15 U/L (8-55); AST (SGOT) 20 U/L (5-34); Albumin 3.8 g/dL (3.4-4.8); Alkaline Phosphatase 112 U/L (40-110); Anion Gap 14 mmol/L (10-20); BUN (Urea Nitrogen) 6 mg/dL (9.8-20.1); Bilirubin, Total 0.4 mg/dL (0.2-1.2); Calc. Creatinine Clearance 0 mL/min (70-130); Calcium 9.1 mg/dL (7.8-10.44); Carbon Dioxide 29 mmol/L (23-31); Chloride 107 mmol/L (98-107); Estimated GFR 69; Globulin 2.4 g/dL (2.4-3.5); Glucose 107 mg/dL (83-110); Potassium 3.6 mmol/L (3.5-5.1); Protein, Total 6.2 g/dL (5.8-8.1); Sodium 146 mmol/L (136-145)
== END 2022-10-02 20:54 | disposition home or self-care (01) ==
LOC: MADERS 17:56
DX: M54.6 Pain in thoracic spine (principal); I10 Essential (primary) hypertension; J44.9 Chronic obstructive pulmonary disease, unspecified; Z87.891 Personal history of nicotine dependence; Z79.899 Other long term (current) drug therapy
CPT/HCPCS: 36415; 71045; 71275; 80053; 84484; 85025; 85379; 93005; 96374; 96375; J2272; J2405; J2930; J7620; Q9967